=== PATIENT | female | born 1965 | race Caucasian/White ===

== ENCOUNTER 2019-10-13 13:47 | Outpatient (CLI) | payer MEDICARE, MEDICAID, SELFPAY | END 2019-10-13 13:48 | disposition home or self-care (01) | LOC: ANHAUDIO 13:50 | PROVIDERS: PCP Nurse Practitioner Family; Referring Provider Otolaryngology; Visit Provider Nurse Practitioner Family | DX: H90.3 Sensorineural hearing loss, bilateral (principal) | CPT/HCPCS: 92557; 92567 ==

== ENCOUNTER 2019-11-03 13:18 | Outpatient (RCR) | payer MEDICAID, SELFPAY | END 2019-11-03 23:59 | disposition home or self-care (01) | LOC: ANHAUDIO 13:18 | PROVIDERS: PCP Nurse Practitioner Family; Visit Provider Nurse Practitioner Family | DX: Z46.1 Encounter for fitting and adjustment of hearing aid (principal) | CPT/HCPCS: V5160; V5261 ==

== ENCOUNTER 2020-07-22 15:10 | Emergency (ER) | payer MEDICARE, MEDICAID, SELFPAY ==
[2020-07-22 15:25] VITALS: BP 137/77; PULSE 74; RESP 20; TEMP 36.8; O2SAT 95
--- NOTE | 2020-07-22 15:44 | ECG_ITS ---
Measurements Intervals [place] Rate: 67 P: 58 [place]: 162 QRS: 16 QRSD: 93 T: 40 QT: 408 QTc: 433 Interpretive Statements SINUS RHYTHM LOW QRS VOLTAGE IN PRECORDIAL LEADS BASELINE ARTIFACT- I, II, III, AVR, AVF BORDERLINE ECG Electronically Signed On 07-23-2020 7:43:31 SHEET ROCK HANGER by Mic De Los Santos D.O.
[2020-07-22 15:47] LABS: Basophils Absolute Auto 0.03 K/mm3 (0.00-0.10); Basophils Percent Auto 0.2 % (0.0-1.0); Eosinophils Absolute Auto 0.07 K/mm3 (0.02-0.50); Eosinophils Percent Auto 0.6 % (1.0-6.0); Hematocrit 49.4 % (35.0-49.0); Hemoglobin 16.2 g/dL (12.0-15.0); Immature Granulocyte Absolute 0.06 K/mm3 (0.00-0.00); Immature Granulocyte Percent A 0.5 % (0.0-0.0); Lymphocytes Absolute Auto 0.85 K/mm3 (1.10-4.50); Lymphocytes Percent Auto 7.1 % (18.0-42.0); Mean Corpuscular HGB Conc 32.8 g/dL (32.0-36.0); Mean Corpuscular Hemoglobin 27.5 pg (27.0-31.0); Mean Corpuscular Volume 83.7 fL (78.0-102.0); Mean Platelet Volume 9.2 fl (9.2-11.8); Monocytes Absolute Auto 0.48 K/mm3 (0.10-0.90); Neutrophils Absolute Auto 10.6 K/mm3 (1.7-7.2); Neutrophils Percent Auto 87.6 % (50.0-70.0); Platelet Count Result 297 K/mm3 (150-420); Red Cell Distribution Width 13.3 % (11.6-14.4); White Blood Count 12.1 K/mm3 (4.8-10.8)
[2020-07-22] MEDS: SODIUM CHLORIDE 0.9% IV 1,000 ML 999 ML IV CONT (15:58)
[2020-07-22] MEDS: ONDANSETRON INJ 4 MG/2 ML VIAL IV PUSH (15:59)
[2020-07-22 16:06] LABS: Lactic Acid Reflex 2.5 mmol/L (0.4-2.0); Troponin I 5.3 ng/L (0.00-60.4)
[2020-07-22 16:15] LABS: Alanine Aminotransferase 35 U/L (14-59); Albumin Level 4.2 g/dL (3.4-5.0); Alkaline Phosphatase 93 U/L (46-116); Anion Gap 13 mmol/L (8-16); Aspartate Amino Transferase 17 U/L (15-37); Bilirubin,Total 0.5 mg/dL (0.00-1.00); Blood Urea Nitrogen 21 mg/dL (7-18); Calcium 9.8 mg/dL (8.5-10.1); Carbon Dioxide 28 mmol/L (21-32); Chloride 99 mmol/L (98-108); Estimated CRCL calculation 70 ml/min; Estimated Glomerular Filt Rate 51; Glucose 129 mg/dL (70-99); Lipase 94 U/L (73-393); Osmolality Calculated 295 mOsm/kg (285-295); Potassium 3.4 mmol/L (3.5-5.1); Sodium 140 mmol/L (136-145); Total Protein 8.1 g/dL (6.4-8.2)
--- NOTE | 2020-07-22 16:29 | ED.NAVMDI ---
HPI - Nausea/Vomiting/Diarrhea General Chief complaint: Nausea/Vomiting/Diarrhea Stated complaint: vomitting,chest pain Source: patient and family Mode of arrival: ambulatory Limitations: no limitations History of Present Illness HPI Narrative: This is a 54-year-old female who presents nausea and episodes of vomiting and diarrhea with crampy abdominal pain that started earlier this morning 5:00 a.m., the patient has also been complaining of crampy abdominal pain with epigastric burning and chest pain that is reproducible with some pressure. Patient denies any shortness of breath pain level is well controlled, there is no fever chills patient also has loose watery diarrhea that started along with her nausea vomiting. MD elicited complaint: nausea, vomiting, diarrhea and abdominal pain Onset (ago): hour(s) Description of vomiting: food contents and watery Associated nausea: Yes Associated abdominal pain: Yes Location of pain: epigastric Pain consistency: intermittent Severity: mild Quality: cramping Exacerbating factors: eating and vomiting Context: possible food poisoning Associated symptoms: chest pain Related Data Home Medications Medication Instructions Recorded Confirmed aripiprazole [Abilify] 20 mg PO HS 07/22/20 07/22/20 clonazepam 0.25 mg PO DAILY PRN 07/22/20 07/22/20 cyanocobalamin (vitamin B-12) 1,000 mcg IM MONTHLY 07/22/20 07/22/20 empagliflozin [Jardiance] 25 mg PO DAILY 07/22/20 07/22/20 fenofibrate 54 mg PO DAILY 07/22/20 07/22/20 fluoxetine 80 mg PO DAILY 07/22/20 07/22/20 galcanezumab-gnlm [Emgality Pen] See Rx Instructions .ROUTE .COMPLEX 07/22/20 07/22/20 isosorbide mononitrate 30 mg PO DAILY 07/22/20 07/22/20 levetiracetam [Keppra] 500 mg PO BID 07/22/20 07/22/20 metoprolol succinate 50 mg PO BID 07/22/20 07/22/20 mirabegron [Myrbetriq] 25 mg PO DAILY 07/22/20 07/22/20 montelukast 10 mg PO DAILY 07/22/20 07/22/20 olmesartan-hydrochlorothiazide 1 tablet PO DAILY 07/22/20 07/22/20 pantoprazole 40 mg PO DAILY 07/22/20 07/22/20 potassium chloride 20 meq PO DAILY 07/22/20 07/22/20 pravastatin 20 mg PO DAILY 07/22/20 07/22/20 Allergies Allergy/AdvReac Type Severity Reaction Status Date / Time Penicillins Allergy Mild Unknown Verified 07/22/20 15:34 amoxicillin Allergy Unknown Unknown Verified 07/22/20 15:34 aspirin Allergy Unknown Unknown Verified 07/22/20 15:34 codeine Allergy Unknown Unknown Verified 07/22/20 15:34 Review of Systems Review of Systems: All systems reviewed & are unremarkable except as noted in HPI and below PMFSH Past Medical History Medical History Diabetes mellitus HTN (hypertension) Family History Family History Sibling Hypertension Family history of diabetes mellitus in first degree relative Social History Social History Smoking status: Never smoker Gender identity (if verbalized by the patient): Female Exam Const: General: no acute distress and alert Orientation/consciousness: patient oriented x3 HENMT: Head: normal to inspection Eyes: Pupils: Equal, round and reactive pupils present EOM: EOMs intact bilaterally Direct Ophthalmoscopy: no photophobia Neck: Neck: normal visual inspection, no lymphadenopathy and no meningeal signs Chest: Chest palpation & inspection: normal inspection of the chest Resp: Effort & Inspection: normal respiratory effort Auscultation: clear to auscultation bilaterally Cardio: Rate: regular rate Rhythm: regular rhythm GI: GI Palp: Yes Soft to palpation and Yes Tenderness to palpation present (GI) ( intermittent crampy abdominal pain tender epigastric area) Percussion: Yes normal to percussion : General: Yes no CVA tenderness Back/Spine/Pelvis: Back: no CVA tenderness Skin: General skin exam: normal color Rashes: no rashes Neuro: General: patient oriented x3
[2020-07-22 16:40] LABS: Add Urine Microscopic? YES; Appearance Urine Clear (Clear); Bilirubin Urine Negative (Negative); Blood Urine 1+ (Negative); Color Urine Yellow (Yellow); Glucose Urine UA 2+ (Negative); Ketones Urine Negative (Negative); Leukocyte Esterase Ur Negative LEU/UL (Negative); Nitrate Urine Negative (Negative); Protein Urine Trace (Negative); Specific Grav Ur >= 1.030 (1.010-1.020); Urobilinogen Urine 0.2 mg/dL (0.2-1.0); pH Urine 5.5 (5.0-8.0)
[2020-07-22 16:45] LABS: Squamous Epithelial Cell Urine Few /hpf (Few); WBC Urine 0-3 /hpf (0-3)
[2020-07-22 16:46] LABS: Bacteria Urine Trace /hpf
[2020-07-22 17:14] VITALS: BP 131/78; PULSE 75; RESP 20; TEMP 36.7; O2SAT 92
== END 2020-07-22 17:16 | disposition home or self-care (01) ==
PROVIDERS: Emergency Provider Emergency Medicine; PCP Internal Medicine
DX: K52.9 Noninfective gastroenteritis and colitis, unspecified (principal)
CPT/HCPCS: 36415; 80053; 81001; 83605; 83690; 84484; 85025; 93005; 96361; 96374; 99283; 99284; J2405; J7030

== ENCOUNTER 2020-07-28 11:29 | Emergency (ER) | payer MEDICARE, MEDICAID, SELFPAY ==
--- NOTE | ~2020-07-28 | CT_ITS ---
EXAMINATION: CT abdomen pelvis w con EXAM DATE: 07/28/2020 13:18 INDICATION: Generalized abdominal pain, back pain, nausea vomiting. Symptoms 7 days. TECHNIQUE: Spiral CT of the abdomen and pelvis was performed following intravenous injection of 100 m L Omnipaque 350. Axial, coronal and sagittal images were reviewed. The dose-length product (DLP) fo r this examination was 1466.27 mGy-cm. The exposure was tailored according to patient size (auto mA exposure control), and iterative reconstruction (ASIR) was used as additional dose reduction techniqu e. Comparison is made to prior examination from 11/01/2015. FINDINGS: The liver, spleen, adrenal glands and pancreas are unremarkable. There are cholecystectomy clips. Portal and splenic veins are patent. Kidneys enhance symmetrically. There is no hydronephr osis. There is 7 mm right superior calyceal stone. Punctate left inferior calyceal stone. The uterus is unremarkable. The bladder is undistended at time of imaging. There is no retroperitoneal or pe lvic lymphadenopathy. There are surgical changes consistent with appendectomy. The stomach and small bowel are unremarkab le. Only small amount of colonic contents, fluid. No free intraperitoneal gas. The heart is norm al in size. There are no pericardial or pleural effusions. Right lower lobe calcified granuloma. T here are no osteoblastic or osteolytic lesions identified. IMPRESSION: 1. Colonic fluid. Diarrhea or gastroenteritis? 2. Bilateral nephrolithiasis. Reviewed, dictated and finalized at location B. SMITH
[2020-07-28 11:35] VITALS: BP 139/95; PULSE 85; RESP 24; TEMP 36.9; O2SAT 94
[2020-07-28] MEDS: METOCLOPRAMIDE HCL INJ 10 MG/2 ML VIAL IV PUSH ×2 (12:06→15:42)
[2020-07-28] MEDS: ONDANSETRON INJ 4 MG/2 ML VIAL IV PUSH ×2 (12:06→14:31)
[2020-07-28 12:37] LABS: Appearance Urine Clear (Clear); Bilirubin Urine Negative (Negative); Color Urine Yellow (Yellow); Glucose Urine UA 2+ (Negative); Ketones Urine Negative (Negative); Leukocyte Esterase Ur Negative (Negative); Nitrate Urine Negative (Negative); Protein Urine Trace (Negative); Specific Grav Ur 1.015 (1.010-1.020); Urobilinogen Urine 0.2 mg/dL (0.2-1.0)
[2020-07-28 12:38] LABS: Basophils Absolute Auto 0.03 K/mm3 (0.00-0.10); Basophils Percent Auto 0.4 % (0.0-1.0); Eosinophils Absolute Auto 0.03 K/mm3 (0.02-0.50); Eosinophils Percent Auto 0.4 % (1.0-6.0); Hematocrit 49.4 % (35.0-49.0); Hemoglobin 16.3 g/dL (12.0-15.0); Immature Granulocyte Absolute 0.03 K/mm3 (0.00-0.00); Immature Granulocyte Percent A 0.4 % (0.0-0.0); Lymphocytes Absolute Auto 0.87 K/mm3 (1.10-4.50); Lymphocytes Percent Auto 11.2 % (18.0-42.0); Mean Corpuscular Hemoglobin 27.8 pg (27.0-31.0); Mean Corpuscular Volume 84.3 fL (78.0-102.0); Mean Platelet Volume 9.2 fl (9.2-11.8); Monocytes Absolute Auto 0.29 K/mm3 (0.10-0.90); Monocytes Percent Auto 3.7 % (2.0-11.0); Neutrophils Absolute Auto 6.5 K/mm3 (1.7-7.2); Neutrophils Percent Auto 83.9 % (50.0-70.0); Platelet Count Result 305 K/mm3 (150-420); Red Blood Count 5.86 M/mm3 (4.20-5.40); Red Cell Distribution Width 13.3 % (11.6-14.4); White Blood Count 7.8 K/mm3 (4.8-10.8)
--- NOTE | 2020-07-28 12:45 | ED.ABDPAIN ---
HPI - Abdominal Pain General Chief Complaint: Abdominal Pain Stated Complaint: abd pain/bloating Time Seen by Provider: 07/28/20 11:40 Source: patient Mode of arrival: ambulatory Limitations: no limitations History of Present Illness HPI narrative: Patient complains of moderately severe abdominal pain, diffusely, ongoing for the past few days, but worse today. This has been associated with nausea, emesis, and loose stools. Diarrhea has been severe she says, and ongoing, not relieved by measures taken at home. MD elicited complaint: abdominal pain Onset (ago): day(s) Pain Consistency: intermittent Location: diffuse Severity: moderate Quality: cramping Exacerbating factors: nothing Relieving factors: nothing Associated symptoms: denies other symptoms Related Data Home Medications Medication Instructions Recorded Confirmed aripiprazole [Abilify] 20 mg PO HS 07/22/20 07/28/20 clonazepam 0.25 mg PO DAILY PRN 07/22/20 07/28/20 cyanocobalamin (vitamin B-12) 1,000 mcg IM MONTHLY 07/22/20 07/28/20 empagliflozin [Jardiance] 25 mg PO DAILY 07/22/20 07/28/20 fenofibrate 54 mg PO DAILY 07/22/20 07/28/20 fluoxetine 80 mg PO DAILY 07/22/20 07/28/20 galcanezumab-gnlm [Emgality Pen] 120 mg SUBCUT MONTHLY 07/22/20 07/28/20 isosorbide mononitrate 30 mg PO DAILY 07/22/20 07/28/20 levetiracetam [Keppra] 500 mg PO BID 07/22/20 07/28/20 metoprolol succinate 50 mg PO BID 07/22/20 07/28/20 mirabegron [Myrbetriq] 25 mg PO DAILY 07/22/20 07/28/20 montelukast 10 mg PO DAILY 07/22/20 07/28/20 olmesartan-hydrochlorothiazide 1 tablet PO DAILY 07/22/20 07/28/20 pantoprazole 40 mg PO DAILY 07/22/20 07/28/20 potassium chloride 20 meq PO DAILY 07/22/20 07/28/20 pravastatin 20 mg PO DAILY 07/22/20 07/28/20 Allergies Allergy/AdvReac Type Severity Reaction Status Date / Time Penicillins Allergy Mild Unknown Verified 07/22/20 15:34 amoxicillin Allergy Unknown Unknown Verified 07/22/20 15:34 aspirin Allergy Unknown Unknown Verified 07/22/20 15:34 codeine Allergy Unknown Unknown Verified 07/22/20 15:34 Review of Systems Constitutional: Constitutional: Reports no additional constitutional complaints Eyes: Eyes: Reports no additional eye complaints ENT: Reports system reviewed and no additional complaints, except as documented Cardiovascular: Cardiovascular: Reports no additional cardiovascular complaints Respiratory: Respiratory: Reports no additional respiratory complaints Gastrointestinal: Gastrointestinal: Reports abdominal pain, Reports diarrhea, Reports nausea and Reports vomiting Genitourinary: Genitourinary: Reports no additional female genitourinary complaints Musculoskeletal: Musculoskeletal: Reports no additional musculoskeletal complaints Integumentary/Breasts: Skin/Breast: Reports system reviewed and no additional complaints, except as docu Neurologic: Reports system reviewed and no additional complaints, except as documented Psychiatric: Psychiatric: Reports no additional psychiatric complaints Endocrine: Endocrine: Reports no additional endocrine complaints Hematologic/Lymphatic: Hematologic/Lymphatic: Reports no additional hematologic/lymphatic complaints Allergic/Immunologic: Allergic/Immunologic: Reports no additional allergic/immunologic complaints [facility] Past Medical History Medical History Diabetes mellitus HTN (hypertension) Family History Family History Sibling Hypertension Family history of diabetes mellitus in first degree relative Social History Social History Smoking status: Never smoker Gender identity (if verbalized by the patient): Female Exam Const: General: no acute distress Orientation/consciousness: patient oriented x3 HENMT: Head: normal to inspection Ears: external ears normal and TM's normal bilaterally General nose exam: Normal exte
[2020-07-28 12:46] LABS: Add Urine Microscopic? YES; Bacteria Urine 1+ /hpf; Blood Urine Trace-Intact (Negative); Squamous Epithelial Cell Urine Moderate /hpf (Few); WBC Urine 0-3 /hpf (0-3)
[2020-07-28 12:54] LABS: Lactic Acid Reflex 3.3 mmol/L (0.4-2.0)
[2020-07-28 12:59] LABS: Alanine Aminotransferase 26 U/L (14-59); Alkaline Phosphatase 88 U/L (46-116); Amylase 17 U/L (25-115); Anion Gap 10 mmol/L (8-16); Aspartate Amino Transferase 29 U/L (15-37); Bilirubin,Total 0.7 mg/dL (0.00-1.00); Blood Urea Nitrogen 24 mg/dL (7-18); Calcium 9.8 mg/dL (8.5-10.1); Carbon Dioxide 30 mmol/L (21-32); Chloride 97 mmol/L (98-108); Estimated Glomerular Filt Rate 48; Glucose 116 mg/dL (70-99); Lipase 81 U/L (73-393); Osmolality Calculated 289 mOsm/kg (285-295); Potassium 3.1 mmol/L (3.5-5.1); Sodium 137 mmol/L (136-145); Total Protein 8.3 g/dL (6.4-8.2)
[2020-07-28 13:04] LABS: Troponin I 6.2 ng/L (0.00-60.4)
[2020-07-28] MEDS: POTASSIUM CHLORIDE 20 MEQ TABLET 40 MEQ PO (14:25)
[2020-07-28] MEDS: LACTATED RINGERS 1,000 ML 999 ML IV CONT (14:26)
--- NOTE | 2020-07-28 15:16 | PC.NURSE ---
PT IS GIVEN ITEMS TO CLEAN AFTER HAVING DIARRHEA, PT IS GIVEN ADULT DIAPER - IV FLUIDS INFUSING
[2020-07-28] MEDS: PROCHLORPERAZINE EDISYLATE 10 MG/2 ML VIAL 5 MG IV PUSH (15:42)
[2020-07-28 15:55] LABS: Reflex Lactic Acid Yes or No Add Lactic
[2020-07-28 16:57] VITALS: BP 165/91
== END 2020-07-28 17:00 | disposition home or self-care (01) ==
PROVIDERS: Emergency Provider Emergency Medicine; PCP Internal Medicine
DX: E11.43 Type 2 diabetes mellitus with diabetic autonomic (poly)neuropathy (principal); K31.84 Gastroparesis; K52.9 Noninfective gastroenteritis and colitis, unspecified
CPT/HCPCS: 36415; 74177; 80053; 81001; 82150; 83605; 83690; 84484; 85025; 96361; 96374; 96375; 96376; 99283; 99284; A9270; J0780; J2405; J2765; J7120; Q9967

== ENCOUNTER 2021-01-30 16:46 | Emergency (ER) | payer MEDICARE, MEDICAID, SELFPAY ==
[2021-01-30] VITALS (17 sets, daily range): BP systolic 127–171; BP diastolic 59–87; PULSE 64–88; RESP 15–24; TEMP 36.1; O2SAT 92–98
--- NOTE | ~2021-01-30 | XR_ITS ---
EXAMINATION: XR chest 2V DATE: 01/30/2021 17:13 INDICATION: Midsternal chest pain and headache TECHNIQUE: AP and lateral views of the chest are obtained. COMPARISON: 07/01/2012 FINDINGS: The lungs are free of acute opacities. There is no pleural effusion or pneumothorax. The ca rdiomediastinal silhouette is normal. There is mild thoracic spondylosis. IMPRESSION: 1. No acute cardiopulmonary abnormality. Reviewed, dictated and finalized at location A.
--- NOTE | ~2021-01-30 | CT_ITS ---
EXAMINATION: CTA brain carotid EXAM DATE: 01/30/2021 19:55 INDICATION: headache, neck pain, hx aneurysm. TECHNIQUE: Spiral CTA of the carotid arteries was performed with intravenous injection 100 cc of Omni paque 350. Axial, coronal, sagittal reformatted images reviewed. Additional reformatted images creat ed on dedicated 3-D workstation. NASCET comparable standard used to assess the degree of arterial st enosis. Spiral CT angiogram cerebral arteries performed with the same intravenous injection of contr ast. Source images of the brain CTA transferred to dedicated workstation for 3-D rotational image cre ation. Coronal, sagittal maximum intensity pixel images also reviewed. The dose-length product (DLP ) for this examination was 1173.50 mGy-cm. The exposure was tailored according to patient size, and iterative reconstruction (ASIR) was used as additional dose reduction technique. Correlation is made to head CT from yesterday. FINDINGS: There is mild bilateral carotid bulb arteriosclerosis with 0% stenosis bilaterally. Carotid siphons are unremarkable. There is are aneurysm coils in the region of the anterior communicating ar sravanthi. There is right-sided posterior communicating artery dominant posterior cerebral artery. The iron tebral arteries are codominant. There is no carotid or vertebral basilar arterial dissection or fibr omuscular dysplasia. There are no cerebral artery aneurysms. There is symmetric cerebral artery arbor ization. The sagittal, transverse and sigmoid sinuses enhance normally, no venous sinus thrombosis. I nternal cerebral veins also enhance normally. Incidental Findings: Multinodular goiter. Chronically completely opacified left maxillary sinus wall thickening. Small old right frontal lobe leroy hole, encephalomalacia and reviewed. IMPRESSION: 1. No acute carotid or intracranial findings. 2. Bilateral carotid bulb 0% stenosis. 3. Suprasellar aneurysm treatment. Reviewed, dictated and finalized at location B.
--- NOTE | ~2021-01-30 | CT_ITS ---
EXAMINATION: CT brain wo con DATE: 01/30/2021 18:12 INDICATION: Headache, dizziness, blurred vision for 4 days. History of brain aneurysm. TECHNIQUE: Computed tomography (CT) of the head was performed without intravenous contrast. The mA wa s adjusted according to patient size. Iterative reconstruction technique was employed. Exam dose: 60 5.33 mGy-cm total exam DLP. COMPARISON: 06/04/2012 CT brain FINDINGS: There is a stable chronic focal right frontal cerebrovascular accident. Aneurysm clip overlying suprasellar area; history of brain aneurysm. No intracranial mass lesion or hemorrhage or recent cerebrovascular accident. No midline shift or mass effect. No subdural or epidural hematoma. There is deformity of the lateral wall of the left maxillary sinus and complete opacification of the left maxillary sinus. No fracture or bone destruction of the cranial vault. IMPRESSION: Status post cerebral aneurysm repair. 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 Reviewed, dictated and finalized at location A.
--- NOTE | 2021-01-30 16:49 | ECG_ITS ---
Measurements Intervals [place] Rate: 77 P: 47 HI: 129 QRS: 26 QRSD: 94 T: 53 QT: 366 QTc: 414 Interpretive Statements SINUS RHYTHM INCOMPLETE RIGHT BUNDLE BRANCH BLOCK LOW QRS VOLTAGE IN PRECORDIAL LEADS BASELINE ARTIFACT- II, III, AVF, V2-V6 BORDERLINE ECG Electronically Signed On 01-30-2021 19:49:01 CDT by Mic De Los Santos D.O.
[2021-01-30 17:37] LABS: Basophils Absolute Auto 0.1 K/mm3 (0.0-0.1); Basophils Percent Auto 0.5 % (0.2-1.2); Eosinophils Absolute Auto 0.2 K/mm3 (0-0.3); Eosinophils Percent Auto 1.9 % (0-4.4); Hemoglobin 16.2 g/dL (12.0-15.0); Immature Granulocyte Absolute 0.06 K/mm3 (0.00-0.031); Immature Granulocyte Percent A 0.6 % (0-0.5); Lymphocytes Absolute Auto 2.21 K/mm3 (0.9-3.2); Lymphocytes Percent Auto 23.7 % (18.3-44.2); Mean Corpuscular HGB Conc 33.8 g/dl (32-36); Mean Corpuscular Hemoglobin 29.7 pg (26-34); Mean Corpuscular Volume 87.9 fl (80-100); Mean Platelet Volume 9.1 fl (7.4-10.4); Monocytes Absolute Auto 0.6 K/mm3 (0.1-0.6); Monocytes Percent Auto 6.8 % (2.6-8.5); Neutrophils Absolute Auto 6.2 K/mm3 (1.3-6.7); Neutrophils Percent Auto 66.5 % (45.5-73.1); Platelet Count Result 267 k/mm3 (150-375); Red Blood Count 5.46 M/mm3 (4.2-5.4); Red Cell Distribution Width 14.6 % (11.5-14.5); White Blood Count 9.3 K/mm3 (4.5-10.0)
--- NOTE | 2021-01-30 17:49 | ED.CHESTPAIN ---
HPI - Chest Pain General Chief Complaint: Chest Pain Stated Complaint: SIMON/CP Time Seen by Provider: 01/30/21 17:40 Source: patient Mode of arrival: ambulatory Limitations: no limitations History of Present Illness HPI narrative: This is a 55 year old female that presents to the ER for ongoing headache over the last 4 days. Associated with photophobia, blurry vision, and nausea. Reports history of migraines for which she is on Emgality. She follows with a neurologist at [facility]. Also reports this morning she started having sharp, substernal chest pain. She was just sitting down at breakfast when it started. Does report some shortness of breath, which seems to be chronic for her. Denies fever, cough, lower extremity edema, vomiting, numbness or weakness. Related Data Home Medications Medication Instructions Recorded Confirmed aripiprazole [Abilify] 20 mg PO HS 07/22/20 07/28/20 clonazepam 0.25 mg PO DAILY PRN 07/22/20 07/28/20 cyanocobalamin (vitamin B-12) 1,000 mcg IM MONTHLY 07/22/20 07/28/20 empagliflozin [Jardiance] 25 mg PO DAILY 07/22/20 07/28/20 fenofibrate 54 mg PO DAILY 07/22/20 07/28/20 fluoxetine 80 mg PO DAILY 07/22/20 07/28/20 galcanezumab-gnlm [Emgality Pen] 120 mg SUBCUT MONTHLY 07/22/20 07/28/20 isosorbide mononitrate 30 mg PO DAILY 07/22/20 07/28/20 levetiracetam [Keppra] 500 mg PO BID 07/22/20 07/28/20 metoprolol succinate 50 mg PO BID 07/22/20 07/28/20 mirabegron [Myrbetriq] 25 mg PO DAILY 07/22/20 07/28/20 montelukast 10 mg PO DAILY 07/22/20 07/28/20 olmesartan-hydrochlorothiazide 1 tablet PO DAILY 07/22/20 07/28/20 pantoprazole 40 mg PO DAILY 07/22/20 07/28/20 potassium chloride 20 meq PO DAILY 07/22/20 07/28/20 pravastatin 20 mg PO DAILY 07/22/20 07/28/20 Allergies Allergy/AdvReac Type Severity Reaction Status Date / Time Penicillins Allergy Mild Unknown Verified 01/30/21 17:25 amoxicillin Allergy Unknown Unknown Verified 01/30/21 17:25 aspirin Allergy Unknown Unknown Verified 01/30/21 17:25 codeine Allergy Unknown Unknown Verified 01/30/21 17:25 Review of Systems Review of Systems: CONSTITUTIONAL: Denies fever EYES: Reports visual changes CARDIOVASCULAR: Reports chest pain. Denies edema. RESPIRATORY: Reports dyspnea. Denies cough GASTROINTESTINAL: Reports nausea. Denies vomiting NEUROLOGIC: Reports headache. Denies numbness, or weakness. All systems reviewed & are unremarkable except as noted in HPI and below [facility] Past Medical History Medical History (Updated 01/30/21 @ 21:13 by Hilaria Mchugh PA-C) Aneurysm Diabetes mellitus History of migraine HTN (hypertension) Family History Family History Sibling Hypertension Family history of diabetes mellitus in first degree relative Social History Social History Smoking status: Never smoker Gender identity (if verbalized by the patient): Female Exam Narrative: GENERAL: Well-appearing, obese, and in no acute distress. HEAD: Normocephalic, atraumatic. EYES: PERRLA and EOMI. ENT: Nares clear, no rhinorrhea or epistaxis. Mucous membranes moist. Oropharynx without tonsillar hypertrophy exudate or other lesions. Bilateral TMs pearly roa non-bulging NECK: Supple. No adenopathy or masses. CHEST: Clear to auscultation. No respiratory distress. No wheezes rales or rhonchi. Tender to palpation of the mid sternum HEART: Regular rate and rhythm. No murmur heard. Normal peripheral pulses. EXTREMITIES: Normal range of motion. No edema. Strength equal in bilateral upper and lower extremities (5/5) SKIN: Warm, dry, no rash. NEURO: No focal deficits. Alert and oriented x3. Cranial nerves II through XII grossly intact PSYCH: Normal mood and affect Course Vital Signs Vital signs: Vital Signs Temperature 97.0 F L 01/30/21 16:54 Pulse Rate 76 01/30/21 16:54 Respiratory Rate 20 01/30/21 16:54 Blood Pressure 146/87 H 01/30/21 16:54 Pulse
[2021-01-30 17:52] LABS: INR 0.9; Prothrombin Time 11.6 Seconds (11.1-14.7)
[2021-01-30 17:53] LABS: Partial Thromboplastin Time 25.7 SECONDS (22.3-36.8)
[2021-01-30 17:55] LABS: Anion Gap 14 mmol/L (8-16); Blood Urea Nitrogen 17 mg/dL (7-17); Carbon Dioxide 26 mmol/L (22-30); Chloride 100 mmol/L (98-107); Estimated CRCL calculation 76 ml/min; Estimated Glomerular Filt Rate 58; Glucose 131 mg/dL (65-110); Potassium 3.7 mmol/L (3.4-5.0); Sodium 140 mmol/L (137-145)
[2021-01-30 18:07] LABS: NT Pro B Type Natriuretic Pept 145 pg/mL (5-100); Troponin I < 0.012 ng/mL (0.000-0.034)
[2021-01-30 18:14] LABS: Glucose Point of Care 133 mg/dl (65-105)
[2021-01-30] MEDS: SODIUM CHLORIDE 0.9% IV 1,000 ML 999 ML IV CONT (18:15)
[2021-01-30] MEDS: diphenhydrAMINE HCl INJ 50 MG/ML VIAL 25 MG IV PUSH (18:15)
[2021-01-30] MEDS: METOCLOPRAMIDE HCL INJ 10 MG/2 ML VIAL IV PUSH (18:15)
[2021-01-30] MEDS: METOPROLOL TARTRATE 50 MG TAB PO (20:24)
--- NOTE | 2021-01-30 20:43 | PC.NURSE ---
states headache continues 12/26, Adamaris Mchugh PA-C notified.
[2021-01-30 21:04] LABS: Troponin I < 0.012 ng/mL (0.000-0.034)
== END 2021-01-30 21:30 | disposition home or self-care (01) ==
PROVIDERS: Emergency Provider Emergency Medicine; PCP Internal Medicine
DX: R07.89 Other chest pain (principal); G43.909 Migraine, unspecified, not intractable, without status migrainosus; E11.9 Type 2 diabetes mellitus without complications; I10 Essential (primary) hypertension; R06.02 Shortness of breath
CPT/HCPCS: 36415; 70450; 70496; 70498; 71046; 80048; 82948; 83880; 84484; 85025; 85610; 85730; 93005; 96361; 96365; 96375; 99284; A9270; J0131; J1100; J1200; J2765; J7030; Q9967

== ENCOUNTER 2021-03-15 11:32 | Outpatient (CLI) | payer MEDICARE, SELFPAY ==
[2021-03-15 11:46] LABS: Basophils Absolute Auto 0.06 K/mm3 (0.00-0.10); Basophils Percent Auto 0.9 % (0.0-1.0); Eosinophils Absolute Auto 0.22 K/mm3 (0.02-0.50); Eosinophils Percent Auto 3.4 % (1.0-6.0); Hematocrit 47.1 % (35.0-49.0); Hemoglobin 16.1 g/dL (12.0-15.0); Immature Granulocyte Absolute 0.04 K/mm3 (0.00-0.00); Immature Granulocyte Percent A 0.6 % (0.0-0.0); Lymphocytes Absolute Auto 1.81 K/mm3 (1.10-4.50); Lymphocytes Percent Auto 27.7 % (18.0-42.0); Mean Corpuscular HGB Conc 34.2 g/dL (32.0-36.0); Mean Corpuscular Hemoglobin 29.8 pg (27.0-31.0); Mean Corpuscular Volume 87.2 fL (78.0-102.0); Mean Platelet Volume 8.8 fl (9.2-11.8); Monocytes Absolute Auto 0.39 K/mm3 (0.10-0.90); Neutrophils Percent Auto 61.4 % (50.0-70.0); Platelet Count Result 260 K/mm3 (150-420); Red Cell Distribution Width 13.2 % (11.6-14.4); White Blood Count 6.5 K/mm3 (4.8-10.8)
[2021-03-15 11:47] LABS: Add Urine Microscopic? YES; Appearance Urine Clear (Clear); Bilirubin Urine Negative (Negative); Blood Urine Negative (Negative); Color Urine Light Yellow (Yellow); Glucose Urine UA 2+ (Negative); Ketones Urine Negative (Negative); Leukocyte Esterase Ur Negative (Negative); Nitrate Urine Negative (Negative); Protein Urine Negative (Negative); Specific Grav Ur <= 1.005 (1.010-1.020); Urobilinogen Urine 0.2 mg/dL (0.2-1.0)
[2021-03-15 11:51] LABS: Bacteria Urine None seen /hpf; RBC Urine None seen /hpf (0-2); Squamous Epithelial Cell Urine Rare /hpf (Few); WBC Urine None seen /hpf (0-3)
[2021-03-15 12:11] LABS: Creatinine Urine 26.35 mg/dL (40-278); MALB Creatinine Ratio 49.3 mg/g (0-30); Microalbumin Urine Random < 13.0 mg/L
[2021-03-15 12:14] LABS: Hemoglobin A1C 6.1 % (<5.7)
[2021-03-15 12:28] LABS: Alanine Aminotransferase 40 U/L (14-59); Albumin Level 3.8 g/dL (3.4-5.0); Alkaline Phosphatase 89 U/L (46-116); Anion Gap 12 mmol/L (8-16); Aspartate Amino Transferase 23 U/L (15-37); Bilirubin,Total 0.5 mg/dL (0.00-1.00); Blood Urea Nitrogen 15 mg/dL (7-18); Carbon Dioxide 29 mmol/L (21-32); Chloride 100 mmol/L (98-108); Cholesterol 194 mg/dL (0-200); Estimated Glomerular Filt Rate > 60; Glucose 110 mg/dL (70-99); HDL Direct 40 mg/dL (40-60); LDL Cholesterol Calculated 127 mg/dL (<130); Osmolality Calculated 293 mOsm/kg (285-295); Potassium 3.7 mmol/L (3.5-5.1); Sodium 141 mmol/L (136-145); Thyroid Stimulating Hormone 0.58 uIU/mL (0.36-3.74); Total Protein 7.1 g/dL (6.4-8.2); Triglycerides 134 mg/dL (0-150)
[2021-03-15 12:32] LABS: Calcium 9.2 mg/dL (8.5-10.1)
== END 2021-03-15 11:33 | disposition home or self-care (01) ==
LOC: CHSLAB 11:35
PROVIDERS: PCP Internal Medicine; Visit Provider Internal Medicine
DX: E11.9 Type 2 diabetes mellitus without complications (principal); I10 Essential (primary) hypertension; E78.5 Hyperlipidemia, unspecified
CPT/HCPCS: 36415; 80053; 80061; 81001; 82043; 83036; 84443; 85025

== ENCOUNTER 2021-05-14 10:45 | Outpatient (CLI) | payer MEDICARE, MEDICAID, SELFPAY ==
--- NOTE | ~2021-05-14 | MM_ITS ---
EXAMINATION: MM screening meggan BI w naima HISTORY: Screening TECHNIQUE: Craniocaudal and mediolateral oblique 3-D tomosynthesis images were obtained and synthetic 2-D images were generated. CAD analysis was submitted and interpreted. COMPARISON: Comparison to multiple prior studies sequentially, with oldest reviewed study dated 05/2012. BREAST PARENCHYMAL COMPOSITION: Breast composed of scattered areas of fibroglandular density FINDINGS: There is no evidence of suspicious mass, calcification, or architectural distortion to sugg est malignancy in either breast. There has been no suspicious interval change. IMPRESSION: 1. No mammographic evidence of malignancy. 2. Recommend routine screening mammography in one year. BI-RADS Category 1: Negative Reviewed, dictated and finalized at location A. SPORT AIRCREWMAN
== END 2021-05-14 10:46 | disposition home or self-care (01) ==
LOC: CHSIMG 10:46
PROVIDERS: PCP Internal Medicine; Visit Provider Internal Medicine
DX: Z12.31 Encounter for screening mammogram for malignant neoplasm of breast (principal)
CPT/HCPCS: 77063; 77067

== ENCOUNTER 2021-07-12 18:35 | Emergency (ER) | payer MEDICARE, MEDICAID, SELFPAY ==
--- NOTE | ~2021-07-12 | XR_ITS ---
EXAMINATION: XR chest 1V portable INDICATION: Centralized chest pain and shortness of breath TECHNIQUE: Portable AP chest at 1856 hours COMPARISON: 01/30/2021 FINDINGS: The lungs are free of acute opacities. There is no pleural effusion or pneumothorax. The ca rdiomediastinal silhouette is normal. IMPRESSION: 1. No acute cardiopulmonary abnormality. Reviewed, dictated and finalized at location F. STRIAL SPECIALIST
[2021-07-12 18:44] VITALS: BP 151/80; PULSE 80; RESP 20; TEMP 36.6; O2SAT 96
--- NOTE | 2021-07-12 18:45 | ECG_ITS ---
Measurements Intervals [place] Rate: 74 P: 55 [place]: 172 QRS: 18 QRSD: 99 T: 44 QT: 385 QTc: 428 Interpretive Statements SINUS RHYTHM DELAYED PRECORDIAL R/S TRANSITION LOW QRS VOLTAGE IN PRECORDIAL LEADS BASELINE ARTIFACT- I, II, III, AVR, AVL, AVF BORDERLINE ECG Electronically Signed On 07-12-2021 20:57:33 FLEET MANAGER by Mic De Los Santos D.O.
[2021-07-12 19:09] LABS: Basophils Absolute Auto 0.05 K/mm3 (0.00-0.10); Basophils Percent Auto 0.6 % (0.0-1.0); Eosinophils Absolute Auto 0.18 K/mm3 (0.02-0.50); Eosinophils Percent Auto 2.2 % (1.0-6.0); Hematocrit 46.7 % (35.0-49.0); Hemoglobin 15.8 g/dL (12.0-15.0); Immature Granulocyte Absolute 0.02 K/mm3 (0.00-0.00); Immature Granulocyte Percent A 0.2 % (0.0-0.0); Lymphocytes Absolute Auto 2.03 K/mm3 (1.10-4.50); Lymphocytes Percent Auto 24.6 % (18.0-42.0); Mean Corpuscular HGB Conc 33.8 g/dL (32.0-36.0); Mean Corpuscular Volume 85.8 fL (78.0-102.0); Monocytes Absolute Auto 0.43 K/mm3 (0.10-0.90); Monocytes Percent Auto 5.2 % (2.0-11.0); Neutrophils Absolute Auto 5.6 K/mm3 (1.7-7.2); Neutrophils Percent Auto 67.2 % (50.0-70.0); Platelet Count Result 262 K/mm3 (150-420); Red Blood Count 5.44 M/mm3 (4.20-5.40); Red Cell Distribution Width 13.2 % (11.6-14.4); White Blood Count 8.3 K/mm3 (4.8-10.8)
[2021-07-12] MEDS: ONDANSETRON INJ 4 MG/2 ML VIAL IV PUSH ×2 (19:21→20:20)
[2021-07-12 19:31] LABS: Alanine Aminotransferase 33 U/L (14-59); Albumin Level 3.5 g/dL (3.4-5.0); Alkaline Phosphatase 94 U/L (46-116); Anion Gap 10 mmol/L (8-16); Aspartate Amino Transferase 12 U/L (15-37); Bilirubin,Total 0.5 mg/dL (0.00-1.00); Blood Urea Nitrogen 15 mg/dL (7-18); Calcium 9.4 mg/dL (8.5-10.1); Carbon Dioxide 29 mmol/L (21-32); Chloride 100 mmol/L (98-108); Estimated CRCL calculation 88 ml/min; Estimated Glomerular Filt Rate > 60; Glucose 95 mg/dL (70-99); Lipase 317 U/L (73-393); NT Pro B Type Natriuretic Pept 45 pg/mL (0-125); Osmolality Calculated 288 mOsm/kg (285-295); Potassium 3.3 mmol/L (3.5-5.1); Sodium 139 mmol/L (136-145); Total Protein 7.4 g/dL (6.4-8.2)
--- NOTE | 2021-07-12 20:11 | ED.CHESTPAIN ---
HPI - Chest Pain General Chief Complaint: Chest Pain Stated Complaint: chest pain, arm pain, neck pain Time Seen by Provider: 07/12/21 18:38 Source: patient and RN notes reviewed Mode of arrival: ambulatory Limitations: no limitations History of Present Illness MD complaint: chest pain Pertinent past history: coronary artery disease and prior NM Onset (ago): day(s) (1) Prior episodes: Yes Onset: during rest and during exertion Pain location: substernal and left chest Pain radiation: none Severity: mild Pain scale (0-10): 3 Quality: aching, heaviness and dull Relieving factors: nitroglycerin Exacerbating factors: nothing Associated symptoms: nausea Treatment prior to arrival: aspirin and nitroglycerin Risk Factors Coronary artery disease risk factors: diabetes, hyperlipidemia and hypertension Related Data Home Medications Medication Instructions Recorded Confirmed aripiprazole [Abilify] 20 mg PO HS 07/22/20 07/12/21 clonazepam 0.25 mg PO DAILY PRN 07/22/20 07/12/21 cyanocobalamin (vitamin B-12) 1,000 mcg IM MONTHLY 07/22/20 07/12/21 empagliflozin [Jardiance] 25 mg PO DAILY 07/22/20 07/12/21 fenofibrate 54 mg PO DAILY 07/22/20 07/12/21 fluoxetine 80 mg PO DAILY 07/22/20 07/12/21 galcanezumab-gnlm [Emgality Pen] 120 mg SUBCUT MONTHLY 07/22/20 07/12/21 isosorbide mononitrate 30 mg PO DAILY 07/22/20 07/12/21 levetiracetam [Keppra] 500 mg PO BID 07/22/20 07/12/21 metoprolol succinate 50 mg PO BID 07/22/20 07/12/21 mirabegron [Myrbetriq] 25 mg PO DAILY 07/22/20 07/12/21 montelukast 10 mg PO DAILY 07/22/20 07/12/21 olmesartan-hydrochlorothiazide 1 tablet PO DAILY 07/22/20 07/12/21 pantoprazole 40 mg PO DAILY 07/22/20 07/12/21 potassium chloride 20 meq PO DAILY 07/22/20 07/12/21 pravastatin 20 mg PO DAILY 07/22/20 07/12/21 erenumab-aooe [Aimovig 140 mg SUBCUT MONTHLY 07/12/21 07/12/21 Autoinjector] liraglutide [Victoza 2-Korey] 18 mg SUBCUT USEASDIRECTD 07/12/21 07/12/21 Allergies Allergy/AdvReac Type Severity Reaction Status Date / Time Penicillins Allergy Mild Unknown Verified 07/12/21 19:06 amoxicillin Allergy Unknown Unknown Verified 07/12/21 19:06 aspirin Allergy Unknown Unknown Verified 07/12/21 19:06 codeine Allergy Unknown Unknown Verified 07/12/21 19:06 Review of Systems Review of Systems: All systems reviewed & are unremarkable except as noted in HPI and below PMFSH Past Medical History Medical History Aneurysm Angina pectoris Diabetes mellitus History of migraine HTN (hypertension) Family History Family History Sibling Hypertension Family history of diabetes mellitus in first degree relative Social History Social History Smoking status: Never smoker Gender identity (if verbalized by the patient): Female Exam Const: General: no acute distress and alert Nutritional Appearance: obese Orientation/consciousness: patient oriented x3 Limitations: no limitations HENMT: Head: normal to inspection Ears: external ears normal, TM's normal bilaterally and EAC's normal General nose exam: Normal external nose present and Normal nares present Face and sinus: normal facial exam and sinuses nontender Mouth: Yes lip normal and Yes moist mucous membranes Eyes: Conjunctivae: conjunctivae normal Pupils: Equal, round and reactive pupils present EOM: EOMs intact bilaterally Neck: Neck: normal visual inspection and no lymphadenopathy Other: supple Chest: Chest palpation & inspection: normal inspection of the chest Resp: Effort & Inspection: normal respiratory effort Auscultation: clear to auscultation bilaterally Cardio: Rate: regular rate Rhythm: regular rhythm GI: GI Palp: Yes Soft to palpation and No Tenderness to palpation present (GI) Auscultation: normal bowel sounds : General: Yes bladder normal to palpation and Yes no CVA tend
[2021-07-12] MEDS: MORPHINE SULFATE (*CRX) 2 MG/ML INJ IV PUSH (20:20)
[2021-07-12] MEDS: POTASSIUM CHLORIDE 20 MEQ TABLET PO (20:20)
[2021-07-12 20:21] LABS: Appearance Urine Clear (Clear); Bilirubin Urine Negative (Negative); Color Urine Light Yellow (Yellow); Glucose Urine UA Negative (Negative); Ketones Urine Negative (Negative); Leukocyte Esterase Ur Negative LEU/UL (Negative); Nitrate Urine Negative (Negative); Protein Urine Negative (Negative); Specific Grav Ur 1.015 (1.010-1.020); Urobilinogen Urine 0.2 mg/dL (0.2-1.0)
[2021-07-12 20:25] LABS: Add Urine Microscopic? YES; Bacteria Urine None seen /hpf; Blood Urine Trace-Intact (Negative); Squamous Epithelial Cell Urine Rare /hpf (Few); WBC Urine 0-3 /hpf (0-3)
[2021-07-12 20:28] LABS: Amphetamine Screen Urine Negative (Negative); Barbiturate Screen Urine Negative (Negative); Benzodiazepines Screen Urine Negative (Negative); Cannabinoid Screen Urine Negative (Negative); Cocaine Screen Urine Negative (Negative); Methadone Screen Urine Negative (Negative); Opiate Screen Urine Negative (Negative); Phencyclidine Screen Urine Negative (Negative)
[2021-07-12] MEDS: NITROGLYCERIN SL 0.4 MG TABLET SUBLINGUAL (20:34)
[2021-07-12 20:52] VITALS: BP 151/88; PULSE 88; RESP 14; TEMP 36.6; O2SAT 99
== END 2021-07-12 20:52 | disposition home or self-care (01) ==
PROVIDERS: Emergency Provider Emergency Medicine; PCP Internal Medicine
DX: I20.8 Other forms of angina pectoris (principal); E11.9 Type 2 diabetes mellitus without complications; I10 Essential (primary) hypertension; Z79.899 Other long term (current) drug therapy
CPT/HCPCS: 36415; 71045; 80053; 80307; 81001; 83690; 83880; 84484; 85025; 93005; 96374; 96375; 96376; 99284; A9270; J2270; J2405

== ENCOUNTER 2022-01-07 08:17 | Outpatient (CLI) | payer MEDICARE, SELFPAY ==
[2022-01-07 08:31] LABS: Basophils Absolute Auto 0.04 K/mm3 (0.00-0.10); Basophils Percent Auto 0.7 % (0.0-1.0); Eosinophils Absolute Auto 0.24 K/mm3 (0.02-0.50); Hemoglobin 14.7 g/dL (12.0-15.0); Immature Granulocyte Absolute 0.03 K/mm3 (0.00-0.00); Immature Granulocyte Percent A 0.5 % (0.0-0.0); Lymphocytes Absolute Auto 2.04 K/mm3 (1.10-4.50); Lymphocytes Percent Auto 33.7 % (18.0-42.0); Mean Corpuscular HGB Conc 34.2 g/dL (32.0-36.0); Mean Corpuscular Hemoglobin 29.5 pg (27.0-31.0); Mean Corpuscular Volume 86.3 fL (78.0-102.0); Mean Platelet Volume 9.4 fl (9.2-11.8); Monocytes Absolute Auto 0.47 K/mm3 (0.10-0.90); Monocytes Percent Auto 7.8 % (2.0-11.0); Neutrophils Absolute Auto 3.2 K/mm3 (1.7-7.2); Neutrophils Percent Auto 53.3 % (50.0-70.0); Platelet Count Result 217 K/mm3 (150-420); Red Blood Count 4.98 M/mm3 (4.20-5.40); White Blood Count 6.1 K/mm3 (4.8-10.8)
[2022-01-07 08:48] LABS: Hemoglobin A1C 6.2 % (<5.7)
[2022-01-07 08:55] LABS: Alanine Aminotransferase 34 U/L (14-59); Albumin Level 3.5 g/dL (3.4-5.0); Alkaline Phosphatase 97 U/L (46-116); Anion Gap 9 mmol/L (8-16); Aspartate Amino Transferase 15 U/L (15-37); Bilirubin,Total 0.3 mg/dL (0.00-1.00); Blood Urea Nitrogen 21 mg/dL (7-18); Carbon Dioxide 28 mmol/L (21-32); Chloride 101 mmol/L (98-108); Estimated Glomerular Filt Rate > 60; Glucose 171 mg/dL (70-99); Osmolality Calculated 293 mOsm/kg (285-295); Potassium 3.4 mmol/L (3.5-5.1); Sodium 138 mmol/L (136-145); Thyroid Stimulating Hormone 2.13 uIU/mL (0.36-3.74); Total Protein 7.2 g/dL (6.4-8.2)
== END 2022-01-07 08:18 | disposition home or self-care (01) ==
LOC: CHSLAB 08:20
PROVIDERS: PCP Internal Medicine; Visit Provider Internal Medicine
DX: E11.9 Type 2 diabetes mellitus without complications (principal)
CPT/HCPCS: 36415; 80053; 83036; 84443; 85025

== ENCOUNTER 2022-03-09 08:33 | Outpatient (CLI) | payer MEDICARE, MEDICAID, SELFPAY ==
[2022-03-09 09:01] LABS: Basophils Absolute Auto 0.03 K/mm3 (0.00-0.10); Basophils Percent Auto 0.5 % (0.0-1.0); Eosinophils Absolute Auto 0.16 K/mm3 (0.02-0.50); Eosinophils Percent Auto 2.5 % (1.0-6.0); Hematocrit 45.2 % (35.0-49.0); Hemoglobin 15.3 g/dL (12.0-15.0); Immature Granulocyte Absolute 0.02 K/mm3 (0.00-0.00); Immature Granulocyte Percent A 0.3 % (0.0-0.0); Lymphocytes Absolute Auto 1.44 K/mm3 (1.10-4.50); Lymphocytes Percent Auto 22.4 % (18.0-42.0); Mean Corpuscular HGB Conc 33.8 g/dL (32.0-36.0); Mean Corpuscular Volume 85.6 fL (78.0-102.0); Mean Platelet Volume 9.3 fl (9.2-11.8); Monocytes Absolute Auto 0.45 K/mm3 (0.10-0.90); Neutrophils Absolute Auto 4.3 K/mm3 (1.7-7.2); Neutrophils Percent Auto 67.3 % (50.0-70.0); Platelet Count Result 245 K/mm3 (150-420); Red Blood Count 5.28 M/mm3 (4.20-5.40); Red Cell Distribution Width 13.2 % (11.6-14.4); White Blood Count 6.4 K/mm3 (4.8-10.8)
[2022-03-09 09:18] LABS: Hemoglobin A1C 5.7 % (<5.7)
[2022-03-09 09:24] LABS: Alanine Aminotransferase 39 U/L (14-59); Albumin Level 3.9 g/dL (3.4-5.0); Alkaline Phosphatase 98 U/L (46-116); Anion Gap 8 mmol/L (8-16); Aspartate Amino Transferase 22 U/L (15-37); Bilirubin,Total 0.6 mg/dL (0.00-1.00); Blood Urea Nitrogen 18 mg/dL (7-18); Calcium 9.1 mg/dL (8.5-10.1); Carbon Dioxide 31 mmol/L (21-32); Chloride 100 mmol/L (98-108); Cholesterol 159 mg/dL (0-200); Estimated Glomerular Filt Rate > 60; Glucose 109 mg/dL (70-99); HDL Direct 41 mg/dL (40-60); Iron 85 ug/dL (50-170); LDL Cholesterol Calculated 100 mg/dL (<130); Osmolality Calculated 290 mOsm/kg (285-295); Percent Iron Saturation 26 % (12-57); Potassium 3.2 mmol/L (3.5-5.1); Sodium 139 mmol/L (136-145); Total Protein 7.3 g/dL (6.4-8.2); Triglycerides 92 mg/dL (0-150)
[2022-03-09 09:35] LABS: Thyroid Stimulating Hormone Reflex 0.82 u/IU/mL (0.36-3.74)
[2022-03-09 10:47] LABS: Ferritin 58 ng/mL (8-252)
[2022-03-12 18:37] LABS: Vitamin D 25 Hydroxy 68 ng/mL (30-100)
[2022-03-12 21:29] LABS: C-Peptide 4.27 ng/mL (0.80-3.85)
[2022-03-14 18:03] LABS: Prealbumin 20 mg/dL (17-34)
== END 2022-03-09 08:34 | disposition home or self-care (01) ==
PROVIDERS: PCP Internal Medicine
DX: E78.5 Hyperlipidemia, unspecified (principal); Z98.84 Bariatric surgery status; E66.01 Morbid (severe) obesity due to excess calories; G47.30 Sleep apnea, unspecified; E55.9 Vitamin D deficiency, unspecified; E11.9 Type 2 diabetes mellitus without complications
CPT/HCPCS: 36415; 80053; 80061; 82306; 82728; 83036; 83540; 83550; 84134; 84443; 84681; 85025

== ENCOUNTER 2022-11-22 20:02 | Emergency (ER) | payer MEDICARE, MEDICAID, SELFPAY ==
[2022-11-22] VITALS (14 sets, daily range): BP systolic 132–154; BP diastolic 78–95; PULSE 67–91; RESP 15–24; TEMP 36.7; O2SAT 93–100
--- NOTE | ~2022-11-22 | CT_ITS ---
EXAMINATION: CTA brain carotid DATE: 11/22/2022 20:40 INDICATION: cva TECHNIQUE: Computed tomographic angiography (CTA) of the head was performed without and with 100 mL O mnipaque-350 intravenous contrast. CTA of the neck was performed with intravenous contrast. Automated exposure control and iterative reconstruction technique were employed. The dose-length product was 1 790.95 mGy-cm. Maximum intensity projection and volume rendered 3D-reconstructions were created by donna willams technologist on a separate workstation. COMPARISON: CTA brain carotid 01/30/2021; CT brain 01/30/2021. FINDINGS: CT BRAIN: No acute large vessel infarct, intracranial hemorrhage, mass, or hydrocephalus. 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 Patent cerebral veins. Symmetric parenchymal enhancement. CTA HEAD: No large vessel occlusion, aneurysm, high flow vascular malformation, nidus or extravasation. Persist ent origin of the right posterior cerebral artery. CTA NECK: Aortic arch and proximal great vessels: Mild arch calcification. Normal arch anatomy. Right common carotid, carotid bifurcation, and internal carotid artery: Mild calcification at the bif urcation.There is 0% stenosis of the proximal right internal carotid artery relative to normal distal artery lumen diameter (NASCET criteria). Left common carotid, carotid bifurcation, and internal carotid artery: Mild calcification at the bifu rcation.There is 0% stenosis of the proximal left internal carotid artery relative to normal distal a rtery lumen diameter (NASCET criteria). Vertebral arteries: No significant plaque or stenosis. Vertebral arteries co-dominant. Other findings: Multinodular goiter. Moderate degenerative disc disease at C5-6. IMPRESSION: No acute intracranial hemorrhage or acute large vessel infarct. No large vessel occlusion. No significant carotid or vertebral stenosis. Reviewed, dictated and finalized at location K.
--- NOTE | 2022-11-22 20:10 | ECG_ITS ---
Measurements Intervals [place] Rate: 70 P: 52 [place]: 123 QRS: 19 QRSD: 98 T: 34 QT: 384 QTc: 415 Interpretive Statements SINUS RHYTHM BASELINE ARTIFACT- I, II, III, AVR, AVL, AVF, V1 NORMAL ECG COMPARED TO ECG 07/12/2021 19:05:44 NO SIGNIFICANT CHANGES Electronically Signed On 11-22-2022 23:08:32 CDT by Mic De Los Santos D.O.
--- NOTE | 2022-11-22 20:12 | PC.NURSE ---
family last saw patient completely normal at 0930 this morning. patient has history of migraines but has been out of her medications for migraines.
[2022-11-22 20:29] LABS: Basophils Percent Auto 0.4 % (0.2-1.2); Eosinophils Absolute Auto 0.3 K/mm3 (0-0.3); Eosinophils Percent Auto 3.4 % (0-4.4); Hematocrit 45.9 % (37.0-47.0); Hemoglobin 15.8 g/dL (12.0-15.0); Immature Granulocyte Absolute 0.03 K/mm3 (0.00-0.031); Immature Granulocyte Percent A 0.4 % (0-0.5); Lymphocytes Absolute Auto 2.39 K/mm3 (0.9-3.2); Lymphocytes Percent Auto 32.5 % (18.3-44.2); Mean Corpuscular HGB Conc 34.4 g/dl (32-36); Mean Corpuscular Hemoglobin 30.4 pg (26-34); Mean Corpuscular Volume 88.3 fl (80-100); Mean Platelet Volume 9.2 fl (7.4-10.4); Monocytes Absolute Auto 0.7 K/mm3 (0.1-0.6); Monocytes Percent Auto 8.8 % (2.6-8.5); Neutrophils Percent Auto 54.5 % (45.5-73.1); Platelet Count Result 239 k/mm3 (150-375); Red Cell Distribution Width 13.1 % (11.5-14.5); White Blood Count 7.4 K/mm3 (4.5-10.0)
[2022-11-22 20:33] LABS: Estimated CRCL calculation 95 ml/min; Estimated Glomerular Filt Rate > 60
[2022-11-22 20:36] LABS: Appearance Urine Clear (Clear); Bacteria Urine None Seen /hpf; Bilirubin Urine Negative (Negative); Blood Urine Trace (Negative); Color Urine Yellow (Yellow); Glucose Urine UA Negative (Negative); Ketones Urine Negative (Negative); Leukocyte Esterase Ur 1+ LEU/UL (Negative); Nitrate Urine Negative (Negative); Non Pathogenic Casts 0-2; Protein Urine Negative (Negative); RBC Urine 0-2 /hpf (0-2); Specific Grav Ur 1.011 (1.001-1.035); Squamous Epithelial Cell Urine None seen /hpf (Few); Urobilinogen Urine 0.2 mg/dL (<2.0); pH Urine 5.5 (5.0-9.0)
[2022-11-22 20:40] LABS: Add Urine Microscopic? YES; INR 0.9; Prothrombin Time 12.8 Seconds (11.1-14.7)
[2022-11-22 20:41] LABS: Partial Thromboplastin Time 27.3 SECONDS (22.3-36.8)
[2022-11-22 20:42] LABS: Alanine Aminotransferase 37 U/L (6-35); Albumin Level 4.4 g/dL (3.5-5.1); Alkaline Phosphatase 106 U/L (38-126); Anion Gap 5 mmol/L (8-16); Aspartate Amino Transferase 31 U/L (14-36); Bilirubin,Total 0.4 mg/dL (0.2-1.3); Blood Urea Nitrogen 20 mg/dL (7-17); Calcium 9.6 mg/dL (8.4-10.2); Carbon Dioxide 34 mmol/L (22-30); Chloride 99 mmol/L (98-107); Estimated CRCL calculation 107 ml/min; Estimated Glomerular Filt Rate > 60; Glucose 133 mg/dL (65-110); Magnesium 1.4 mg/dL (1.6-2.3); Potassium 3.4 mmol/L (3.4-5.0); Sodium 138 mmol/L (137-145)
[2022-11-22 20:43] LABS: Lactic Acid Reflex 1.7 mmol/L (0.7-2.0)
[2022-11-22] MEDS: SODIUM CHLORIDE 0.9% IV 1,000 ML 999 ML IV CONT (20:44)
[2022-11-22] MEDS: MAGNESIUM SULF 1 GM/D5W 100 ML 1 GM/100 ML BAG IVPB ×2 (20:44→22:00)
[2022-11-22] MEDS: METOCLOPRAMIDE HCL INJ 10 MG/2 ML VIAL IV PUSH (20:45)
[2022-11-22] MEDS: diphenhydrAMINE HCl INJ 50 MG/ML VIAL IV PUSH (20:45)
[2022-11-22 20:48] LABS: Amphetamine Screen Urine Negative (Negative); Barbiturate Screen Urine Negative (Negative); Benzodiazepines Screen Urine Negative (Negative); Cannabinoid Screen Urine Negative (Negative); Cocaine Screen Urine Negative (Negative); Methadone Screen Urine Negative (Negative); Opiate Screen Urine Negative (Negative); Phencyclidine Screen Urine Negative (Negative)
--- NOTE | 2022-11-22 20:50 | ED.GENADULT ---
HPI - General Adult General Chief complaint: Headache Stated complaint: confusion/headache Time Seen by Provider: 11/22/22 20:09 History of Present Illness HPI narrative: Patient 57-year-old female who presents emergency department with chief complaint of headache. The patient reports that she has been having a headache for approximately 1 week but reports that her head has become more uncomfortable patient reports that she was last known well approximately 930 this morning and then this evening she called her significant other and said that she was in to go to the hospital the patient was found confused [address] by the family Related Data Home Medications Medication Instructions Recorded Confirmed aripiprazole 2 mg tablet (Abilify) 20 mg PO HS 07/22/20 07/12/21 clonazepam 0.25 mg disintegrating 0.25 mg PO DAILY PRN Anxiety 07/22/20 07/12/21 tablet cyanocobalamin (vitamin B-12) 1,000 mcg IM MONTHLY 07/22/20 07/12/21 1,000 mcg/mL injection solution empagliflozin 25 mg tablet 25 mg PO DAILY 07/22/20 07/12/21 (Jardiance) fenofibrate 54 mg tablet 54 mg PO DAILY 07/22/20 07/12/21 fluoxetine 40 mg capsule 80 mg PO DAILY 07/22/20 07/12/21 galcanezumab-gnlm 120 mg/mL 120 mg subcut MONTHLY 07/22/20 07/12/21 subcutaneous pen injector (Emgality Pen) isosorbide mononitrate 30 mg 30 mg PO DAILY 07/22/20 07/12/21 tablet,extended release 24 hr levetiracetam 500 mg tablet 500 mg PO BID 07/22/20 07/12/21 (Keppra) metoprolol succinate 50 mg 50 mg PO BID 07/22/20 07/12/21 tablet,extended release 24 hr mirabegron 25 mg tablet,extended 25 mg PO DAILY 07/22/20 07/12/21 release 24 hr (Myrbetriq) montelukast 10 mg tablet 10 mg PO DAILY 07/22/20 07/12/21 olmesartan 40 1 tablet PO DAILY 07/22/20 07/12/21 mg-hydrochlorothiazide 25 mg tablet pantoprazole 40 mg tablet,delayed 40 mg PO DAILY 07/22/20 07/12/21 release potassium chloride 10 mEq 20 meq PO DAILY 07/22/20 07/12/21 capsule,extended release pravastatin 20 mg tablet 20 mg PO DAILY 07/22/20 07/12/21 erenumab-aooe 140 mg/mL 140 mg subcut MONTHLY 07/12/21 07/12/21 subcutaneous auto-injector (Aimovig Autoinjector) liraglutide 0.6 mg/0.1 mL (18 mg/3 18 mg subcut USEASDIRECTD 07/12/21 07/12/21 mL) subcutaneous pen injector (simpleFLOORStoza 2-Korey) Allergies Allergy/AdvReac Type Severity Reaction Status Date / Time Penicillins Allergy Mild Unknown Verified 07/12/21 19:06 amoxicillin Allergy Unknown Unknown Verified 07/12/21 19:06 aspirin Allergy Unknown Unknown Verified 07/12/21 19:06 codeine Allergy Unknown Unknown Verified 07/12/21 19:06 amlodipine Allergy Nausea and Verified 11/22/22 20:45 Vomiting Review of Systems Review of Systems: A 10 system review of systems was completed on the patient and is negative except for what is stated in the HPI. Nursing and ancillary documentation was reviewed. [facility] Past Medical History Medical History Aneurysm Angina pectoris Diabetes mellitus History of migraine HTN (hypertension) Family History Family History Sibling Hypertension Family history of diabetes mellitus in first degree relative Social History Social History Smoking status: Never smoker Gender identity (if verbalized by the patient): Female Exam Narrative: GENERAL: Well-appearing, well-nourished, and in no acute distress. HEAD: Normocephalic, atraumatic. EYES: PERRLA and EOMI. ENT: Nares clear, no rhinorrhea or epistaxis. Mucous membranes moist. NECK: Supple. CHEST: Clear to auscultation. No respiratory distress. HEART: Regular rate and rhythm. No murmur heard. Normal peripheral pulses. ABDOMEN: Soft, nontender, nondistended, normal active bowel sounds. EXTREMITIES: Normal range of motion. No edema. SKIN: Warm, dry, no rash. NE
[2022-11-22 20:54] LABS: Troponin I < 0.012 ng/mL (0.000-0.034)
== END 2022-11-22 23:24 | disposition home or self-care (01) ==
PROVIDERS: Emergency Medicine; Emergency Provider Emergency Medicine; PCP Internal Medicine
DX: G43.909 Migraine, unspecified, not intractable, without status migrainosus (principal); N39.0 Urinary tract infection, site not specified; E11.9 Type 2 diabetes mellitus without complications; I10 Essential (primary) hypertension; Z79.85 Long-term (current) use of injectable non-insulin antidiabetic drugs; Z79.84 Long term (current) use of oral hypoglycemic drugs; Z79.899 Other long term (current) drug therapy
CPT/HCPCS: 36415; 70496; 70498; 80053; 80307; 81001; 81025; 83605; 83735; 84484; 85025; 85610; 85730; 87077; 87086; 87186; 93005; 96365; 96366; 96375; 99284; J1100; J1200; J2765; J3475; J7030; Q9967

== ENCOUNTER 2022-12-05 11:25 | Outpatient (CLI) | payer MEDICARE, MEDICAID, SELFPAY ==
[2022-12-05 12:03] LABS: Hemoglobin A1C 6.1 % (<5.7)
[2022-12-05 13:33] LABS: Cholesterol 190 mg/dL (0-200); HDL Direct 47 mg/dL (40-60); LDL Cholesterol Calculated 123 mg/dL (<130); Triglycerides 102 mg/dL (0-150)
== END 2022-12-05 11:26 | disposition home or self-care (01) ==
LOC: CHSLAB 11:28
PROVIDERS: PCP Internal Medicine; Visit Provider Internal Medicine
DX: R73.03 Prediabetes (principal); E78.2 Mixed hyperlipidemia
CPT/HCPCS: 36415; 80061; 83036

== ENCOUNTER 2024-02-12 08:11 | Emergency (ER) | payer MEDICARE, MEDICAID, SELFPAY ==
--- NOTE | ~2024-02-12 | XR_ITS ---
EXAMINATION: XR chest 2V DATE: 02/12/2024 09:20 INDICATION: Cough and congestion TECHNIQUE: frontal and lateral views of the chest were obtained. COMPARISON: Chest radiograph dated 07/12/2021 FINDINGS: Consolidation in the right middle lobe concerning for pneumonia. Large calcified right lower lobe nod ule consistent with old granulomatous disease. Remainder of the lungs are clear. With no pulmonary ed hitesh, pleural effusion or pneumothorax. Heart size is normal. Mild thoracic spondylosis. IMPRESSION: 1. Right middle lobe pneumonia. Reviewed, dictated and finalized at location A.
[2024-02-12 08:27] VITALS: BP 149/106; PULSE 85; RESP 15; TEMP 36.3; O2SAT 97
[2024-02-12 08:33] VITALS: BP 149/106; PULSE 85; RESP 15; TEMP 36.3; O2SAT 97
--- NOTE | 2024-02-12 08:40 | ED.URI ---
HPI - URI/Sore Throat General Chief Complaint: Upper Respiratory Infection Stated Complaint: Cough/Headache Time Seen by Provider: 02/12/24 08:44 Source: patient, RN notes reviewed and old records reviewed Mode of arrival: ambulatory Limitations: no limitations History of Present Illness HPI Narrative: 58-year-old female presents to the [facility] with complaints of cough, body aches, fevers and headache for 4-5 days. Onset (ago): day(s) (-5) Related Data Home Medications Medication Instructions Recorded Confirmed aripiprazole 2 mg tablet (Abilify) 20 mg PO HS 07/22/20 02/12/24 clonazepam 0.25 mg disintegrating 0.25 mg PO DAILY PRN Anxiety 07/22/20 02/12/24 tablet cyanocobalamin (vitamin B-12) 1,000 mcg IM MONTHLY 07/22/20 02/12/24 1,000 mcg/mL injection solution fenofibrate 54 mg tablet 54 mg PO DAILY 07/22/20 02/12/24 fluoxetine 40 mg capsule 80 mg PO DAILY 07/22/20 02/12/24 levetiracetam 500 mg tablet 500 mg PO BID 07/22/20 02/12/24 (Keppra) metoprolol succinate 50 mg 50 mg PO BID 07/22/20 02/12/24 tablet,extended release 24 hr montelukast 10 mg tablet 10 mg PO DAILY 07/22/20 02/12/24 pantoprazole 40 mg tablet,delayed 40 mg PO DAILY 07/22/20 02/12/24 release potassium chloride 10 mEq 20 meq PO DAILY 07/22/20 02/12/24 capsule,extended release pravastatin 20 mg tablet 20 mg PO DAILY 07/22/20 02/12/24 albuterol sulfate 90 mcg/actuation See Rx Instructions .Route .COMPLEX 02/12/24 02/12/24 aerosol inhaler rimegepant 75 mg disintegrating See Rx Instructions .Route .COMPLEX 02/12/24 02/12/24 tablet (Nurtec ODT) Allergies Allergy/AdvReac Type Severity Reaction Status Date / Time cephalexin Allergy Intermediate Swelling Verified 02/12/24 08:56 of the Eye Penicillins Allergy Mild Unknown Verified 02/12/24 08:56 amoxicillin Allergy Unknown Unknown Verified 02/12/24 08:56 aspirin Allergy Unknown Unknown Verified 02/12/24 08:56 codeine Allergy Unknown Unknown Verified 02/12/24 08:56 amlodipine AdvReac Intermediate Nausea and Verified 02/12/24 08:56 Vomiting Review of Systems Review of Systems: All systems reviewed & are unremarkable except as noted in HPI and below Constitutional: Constitutional: Reports as per HPI, Reports body ache(s), Reports chills, Reports fatigue and Reports lethargy Eyes: Eyes: Reports no additional eye complaints ENT: Reports as per HPI Cardiovascular: Cardiovascular: Reports no additional cardiovascular complaints, Denies chest pain and Denies dyspnea Respiratory: Respiratory: Reports as per HPI, Reports chest congestion, Reports cough and Denies dyspnea Gastrointestinal: Gastrointestinal: Reports no additional gastrointestinal complaints, Denies abdominal pain, Denies nausea and Denies vomiting Musculoskeletal: Musculoskeletal: Reports no additional musculoskeletal complaints Integumentary/Breasts: Skin/Breast: Reports system reviewed and no additional complaints, except as docu Neurologic: Reports system reviewed and no additional complaints, except as documented Psychiatric: Psychiatric: Reports no additional psychiatric complaints Allergic/Immunologic: Allergic/Immunologic: Reports no additional allergic/immunologic complaints [facility] Past Medical History Medical History Aneurysm Angina pectoris Diabetes mellitus History of migraine HTN (hypertension) Family History Family History Sibling Hypertension Family history of diabetes mellitus in first degree relative Social History Social History Smoking status: Never smoker Gender identity (if verbalized by the patient): Female Comments At the time of my signature, I reviewed and agree with the nursing past medical, surgical, social, and family history. There is no relevant family history pertinent to the patient complaint. Exam
[2024-02-12 09:22] LABS: EDINFLUASCREEN Negative (Negative); EDINFLUBSCREEN Negative (Negative); EDSTREPNEGPOS1 Negative (Negative)
[2024-02-12 09:22] LABS: EDCOVIDSCREEN Negative (Negative)
== END 2024-02-12 09:36 | disposition home or self-care (01) ==
PROVIDERS: Emergency Provider Nurse Practitioner; PCP Student in an Organized Health Care Education/Training Program
DX: J18.1 Lobar pneumonia, unspecified organism (principal); Z20.822 Contact with and (suspected) exposure to COVID-19; E11.9 Type 2 diabetes mellitus without complications; I10 Essential (primary) hypertension
CPT/HCPCS: 71046; 87081; 87426; 87804; 87880; 99213; G0463

== ENCOUNTER 2024-07-17 09:40 | Emergency (ER) | payer MEDICARE, SELFPAY ==
[2024-07-17 09:48] VITALS: BP 153/101; PULSE 61; RESP 16; TEMP 36.9; O2SAT 97
--- NOTE | 2024-07-17 09:58 | ED.URI ---
HPI - URI/Sore Throat General Chief Complaint: Skin/Abscess/Foreign Body Stated Complaint: Rash/Sinus Time Seen by Provider: 07/17/24 09:58 Source: patient, RN notes reviewed and old records reviewed Mode of arrival: ambulatory Limitations: no limitations History of Present Illness HPI Narrative: Patient presents with complaints of sinus pain and pressure that has been present for a couple of weeks. She has not been taking anything for this. She does report the pain is worse when she leans forward. She also has some ear pressure. Her other concern today is a rash around the neck. She denies any change in lotion, soaps, detergents. She denies wearing a necklace. She reports that the rash is burning and itchy. She has not done anything to relieve the symptoms Related Data Home Medications ?Medication ?Instructions ?Recorded ?Confirmed ?Last Taken ?Type aripiprazole 2 mg tablet (Abilify) 20 mg PO HS 07/22/20 02/12/24 07/21/20 History clonazepam 0.25 mg disintegrating 0.25 mg PO DAILY PRN Anxiety 07/22/20 02/12/24 Unknown History tablet cyanocobalamin (vitamin B-12) 1,000 mcg IM MONTHLY 07/22/20 02/12/24 Unknown History 1,000 mcg/mL injection solution fenofibrate 54 mg tablet 54 mg PO DAILY 07/22/20 02/12/24 07/22/20 History fluoxetine 40 mg capsule 80 mg PO DAILY 07/22/20 02/12/24 07/21/20 History levetiracetam 500 mg tablet 500 mg PO BID 07/22/20 02/12/24 07/22/20 History (Pete) metoprolol succinate 50 mg 50 mg PO BID 07/22/20 02/12/24 07/21/20 History tablet,extended release 24 hr montelukast 10 mg tablet 10 mg PO DAILY 07/22/20 02/12/24 Unknown History pantoprazole 40 mg tablet,delayed 40 mg PO DAILY 07/22/20 02/12/24 07/21/20 History release potassium chloride 10 mEq 20 meq PO DAILY 07/22/20 02/12/24 07/21/20 History capsule,extended release pravastatin 20 mg tablet 20 mg PO DAILY 07/22/20 02/12/24 07/21/20 History albuterol sulfate 90 mcg/actuation See Rx Instructions .Route .COMPLEX 02/12/24 02/12/24 Unknown History aerosol inhaler rimegepant 75 mg disintegrating See Rx Instructions .Route .COMPLEX 02/12/24 02/12/24 Unknown History tablet (Nurtec ODT) Allergies Allergy/AdvReac Type Severity Reaction Status Date / Time cephalexin Allergy Intermediate Swelling Verified 07/17/24 09:58 of the Eye Penicillins Allergy Mild Unknown Verified 07/17/24 09:58 amoxicillin Allergy Unknown Unknown Verified 07/17/24 09:58 aspirin Allergy Unknown Unknown Verified 07/17/24 09:58 codeine Allergy Unknown Unknown Verified 07/17/24 09:58 amlodipine AdvReac Intermediate Nausea and Verified 07/17/24 09:58 Vomiting Review of Systems Review of Systems: All systems reviewed & are unremarkable except as noted in HPI and below Constitutional: Constitutional: Reports no additional constitutional complaints and Reports lethargy ENT: Reports system reviewed and no additional complaints, except as documented, Reports nasal congestion, Reports nasal discharge, Reports sinus pain and Reports sinus pressure Cardiovascular: Cardiovascular: Reports no additional cardiovascular complaints Respiratory: Respiratory: Reports no additional respiratory complaints Gastrointestinal: Gastrointestinal: Reports no additional gastrointestinal complaints Integumentary/Breasts: Skin/Breast: Reports as per HPI [facility] Past Medical History Medical History Aneurysm Angina pectoris Diabetes mellitus History of migraine HTN (hypertension) Family History Family History Sibling Hypertension Family history of diabetes mellitus in first degree relative Social History Social History Smoking status: Never smoker Gender identity (if verbalized by the patient): Female Comments At the time of my signature, I reviewed and agree with the nursing past medical, surgical, social, and family history. There is no relevant family history pertinent to the patient complaint. Exam Const: General: cooperative, no acute distress, alert and awake Orientation/consciousness: oriented to person, oriented to place and oriented to time HENMT: Head: normal to inspection Ears: TM abnormal dull bilateral Face and sinus: sinus tenderness Mouth: Yes moist mucous membranes Resp: Effort & Inspection: normal respiratory effort and able to speak in complete sentences Auscultation: clear to auscultation bilaterally, no crackles, no rales, no rhonchi and no wheezes Cardio: Palpation: normal PMI Rate: regular rate Rhythm: regular rhythm Heart sounds: S1 normal heart sound present and S2 normal heart sound present Skin: Full body images:  1. Raised red rash, splotchy 2. Raised red rash, splotchy Neuro: General: oriented to person, oriented to place and oriented to time Cranial nerves: Yes CN's II-XII intact bilaterally Psych: Appearance: grossly normal Thought process: Normal thought process present Insight: Good insight present (Psych) Judgement: Good judgement present (Psych) Course Course Level of Care: Express Care Visit Vital Signs Vital signs: Vital Signs Temperature 98.4 F 07/17/24 09:48 Pulse Rate 61 07/17/24 09:48 Respiratory Rate 16 07/17/24 09:48 Blood Pressure 153/101 H 07/17/24 09:48 Pulse Oximetry 97 07/17/24 09:48 Oxygen Delivery Room Air 07/17/24 09:48 Temperature 98.4 F 07/17/24 09:48 Pulse Rate 61 07/17/24 09:48 Respiratory Rate 16 07/17/24 09:48 Blood Pressure 153/101 H 07/17/24 09:48 Pulse Oximetry 97 07/17/24 09:48 Oxygen Delivery Room Air 07/17/24 09:48 Reviewed MDM - URI/Sore Throat MDM Narrative Medical decision making narrative: Exam consistent with sinusitis, stable for discharge home on p.o. antibiotic therapy. Patient does have a rash insert clear the neck, red, raised, splotchy. Almost looks as though it is reaction to a shirt collar or necklace. She is advised to apply not irritating lotion to the affected area. Discharge instructions reviewed with patient, as well as provided in writing per nursing staff. The instructions also include specific and strict return/GO TO THE ER as well as f/u information. All questions have been answered, and the patient deny any further questions with discharge and discharge plan. Some parts of this dictation were generated by voice recognition software and may contain typographical and/or grammatical inaccuracies. Differential Diagnosis Differential diagnosis: Likely upper respiratory infection, otitis media, sinusitis, viral infection and other (Allergic reaction) Medical Records Attestation: I reviewed the patient's medical records. Discharge Plan Discharge Clinical Impression: Dermatitis Sinusitis Qualifiers: Sinusitis location: frontal Chronicity: acute Recurrence: not specified as recurrent Qualified Code(s): J01.10 - Acute frontal sinusitis, unspecified Patient Disposition: Home, Self-Care Condition: Stable Instructions: Antibiotic Form, Sinusitis (ED), Dermatitis (ED) Additional Instructions: Take medications as prescribed. He use non irritating so to clean your rash, non irritating lotions such as Aquaphor or Eucerin. Follow-up with primary care provider. Emergency department for new or worse symptoms Patient Language: Divehi Prescriptions: New doxycycline monohydrate 100 mg capsule 100 mg PO BID Qty: 14 0RF No Action fluoxetine 40 mg capsule 80 mg PO DAILY potassium chloride 10 mEq capsule, extended release 20 meq PO DAILY metoprolol succinate 50 mg tablet extended release 24 hr 50 mg PO BID levetiracetam [Keppra] 500 mg tablet 500 mg PO BID pantoprazole 40 mg tablet,delayed release (DR/EC) 40 mg PO DAILY cyanocobalamin (vitamin B-12) 1,000 mcg/mL solution 1,000 mcg IM MONTHLY montelukast 10 mg tablet 10 mg PO DAILY pravastatin 20 mg tablet 20 mg PO DAILY clonazepam 0.25 mg tablet,disintegrating 0.25 mg PO DAILY PRN (Reason: Anxiety) aripiprazole [Abilify] 2 mg tablet 20 mg PO HS fenofibrate 54 mg tablet 54 mg PO DAILY albuterol sulfate 90 mcg/actuation HFA aerosol inhaler See Rx Instructions .ROUTE .COMPLEX Rx Instructions: Rx Nurtec ODT 75 mg tablet,disintegrating See Rx Instructions .ROUTE .COMPLEX Rx Instructions: Rx Follow-up/Referrals: Nury,DO Mac [Primary Care Provider] - 2 Weeks Time of Disposition: 10:19
== END 2024-07-17 10:30 | disposition home or self-care (01) ==
PROVIDERS: Emergency Provider Nurse Practitioner Family; PCP Student in an Organized Health Care Education/Training Program
DX: L30.9 Dermatitis, unspecified (principal); J01.10 Acute frontal sinusitis, unspecified; E11.9 Type 2 diabetes mellitus without complications; I10 Essential (primary) hypertension; I20.9 Angina pectoris, unspecified
CPT/HCPCS: 99213; G0463

== ENCOUNTER 2024-07-22 13:17 | Emergency (ER) | payer MEDICARE, MEDICAID, SELFPAY ==
--- NOTE | ~2024-07-22 | XR_ITS ---
HISTORY: fell onto knees COMPARISON: 09/23/2016 TECHNIQUE: 4 views of the left knee were performed. FINDINGS: No acute or subacute fracture, erosion, lytic or sclerotic lesion. Significant medial tibiofemoral joint space narrowing is identified with osteophyte formation. No suprapatellar joint effusion is identified. The infrapatellar joint space is clear. IMPRESSION: Significant degenerative disease, without acute fracture. Reviewed, dictated and finalized at location A. TRUCTION PLANT OPERATOR
--- NOTE | ~2024-07-22 | XR_ITS ---
HISTORY: fell onto knees COMPARISON: None TECHNIQUE: 4 views of the right knee were performed. FINDINGS: No acute or subacute fracture, erosion, lytic or sclerotic lesion. Significant medial and lateral tibiofemoral joint space narrowing is identified, with medial and late ral osteophyte formation. A small suprapatellar joint effusion is identified. The infrapatellar joint space is clear. IMPRESSION: Severe degenerative disease with a suprapatellar joint effusion, and without acute fract ure or dislocation. Reviewed, dictated and finalized at location A. CLERK IMPRESSION: Severe degenerative disease with a suprapatellar joint effusion, a nd without acute fracture or dislocation.
[2024-07-22 13:37] VITALS: BP 130/66; PULSE 63; RESP 16; TEMP 36.3; O2SAT 97
--- NOTE | 2024-07-22 14:08 | ED_ITS ---
HPI - Extremity Injury (Lower) General Chief Complaint: Extremity Injury, Lower Stated Complaint: swollen,painful knees after fall Time Seen by Provider: 07/22/24 14:04 Source: patient, RN notes reviewed and old records reviewed Mode of arrival: ambulatory Limitations: no limitations History of Present Illness HPI Narrative: 58 year old female presents to express care with complaints of falling in her home today on the [place] floor with pain to anterior bilateral knees since fall stating that right knee is worse than left. Patient has tenderness to bilateral anterior knees with no bruising noted, swelling to bilateral anterior knees right greater than left.. Pain increases with bending and also weight bearing. Patient reports that she has applied ice to her knees and has taken Tylenol for her pain. Patient has had gastric weight loss surgery and can not take any Ibuprofen or NSAIDS. Patient is ambulating with limp. complaint: knee injury (bilateral) Onset (ago): day(s) (today at her home) Injury: Bilateral: knee (bilateral anterior knees) Type of Injury: blunt Place: home Severity: moderate Exacerbating factors: weight bearing and other (bending) Treatments prior to arrival: cold therapy and other (Tylenol) Related Data Home Medications ?Medication ?Instructions ?Recorded ?Confirmed ?Last Taken ?Type aripiprazole 2 mg tablet (Abilify) 20 mg PO HS 07/22/20 02/12/24 07/21/20 History clonazepam 0.25 mg disintegrating 0.25 mg PO DAILY PRN Anxiety 07/22/20 02/12/24 Unknown History tablet cyanocobalamin (vitamin B-12) 1,000 mcg IM MONTHLY 07/22/20 02/12/24 Unknown History 1,000 mcg/mL injection solution fenofibrate 54 mg tablet 54 mg PO DAILY 07/22/20 02/12/24 07/22/20 History fluoxetine 40 mg capsule 80 mg PO DAILY 07/22/20 02/12/24 07/21/20 History levetiracetam 500 mg tablet 500 mg PO BID 07/22/20 02/12/24 07/22/20 History (Keppra) metoprolol succinate 50 mg 50 mg PO BID 07/22/20 02/12/24 07/21/20 History tablet,extended release 24 hr montelukast 10 mg tablet 10 mg PO DAILY 07/22/20 02/12/24 Unknown History pantoprazole 40 mg tablet,delayed 40 mg PO DAILY 07/22/20 02/12/24 07/21/20 History release potassium chloride 10 mEq 20 meq PO DAILY 07/22/20 02/12/24 07/21/20 History capsule,extended release pravastatin 20 mg tablet 20 mg PO DAILY 07/22/20 02/12/24 07/21/20 History albuterol sulfate 90 mcg/actuation See Rx Instructions .Route .COMPLEX 02/12/24 02/12/24 Unknown History aerosol inhaler rimegepant 75 mg disintegrating See Rx Instructions .Route .COMPLEX 02/12/24 02/12/24 Unknown History tablet (Nurtec ODT) Allergies Allergy/AdvReac Type Severity Reaction Status Date / Time cephalexin Allergy Intermediate Swelling Verified 07/22/24 13:25 of the Eye Penicillins Allergy Mild Unknown Verified 07/22/24 13:25 amoxicillin Allergy Unknown Unknown Verified 07/22/24 13:25 aspirin Allergy Unknown Unknown Verified 07/22/24 13:25 codeine Allergy Unknown Unknown Verified 07/22/24 13:25 amlodipine AdvReac Intermediate Nausea and Verified 07/22/24 13:25 Vomiting Review of Systems Review of Systems: CONSTITUTIONAL: Denies fever, chills, or sweats. EYES: Denies visual changes, redness, or discharge. ENT: Denies rhinorrhea, congestion, sore throat, or otalgia. CARDIOVASCULAR: Denies chest pain, palpitations, or edema. RESPIRATORY: Denies cough or dyspnea. GASTROINTESTINAL: Denies abdominal pain, nausea, vomiting, or diarrhea. GENITOURINARY: Denies dysuria or hematuria. SKIN: Denies rash or itching. MUSCULOSKELETAL: Denies back pain,positive for bilateral knee pain and swelling right > than left , or myalgia. NEUROLOGIC: Denies headache, numbness, or weakness. PSYCHIATRIC:Reports history of anxiety or depression. All systems reviewed & are unremarkable except as noted in HPI and below PMFSH Past Medical History Medical History Kidney stone Seizures Anxiety and depression Angina pectoris Aneurysm brain surgery at [facility] History of migraine HTN (hypertension) Diabetes mellitus Surgical History Surgical History History of endometrial ablation History of appendectomy History of cholecystectomy Family History Family History Sibling Hypertension Family history of diabetes mellitus in first degree relative Social History Social History Smoking status: Never smoker Alcohol intake: current Alcohol use details: rare Substance use: never Gender identity (if verbalized by the patient): Female Comments At time of signature, agree with nursing past medical, surgical, social and family history. There is no relevant family history pertinent to the presenting complaint Exam Narrative: GENERAL: Well-appearing, well-nourished, and in some acute distress. HEAD: Normocephalic, atraumatic. EYES: PERRLA and EOMI. ENT: Nares clear, no rhinorrhea or epistaxis. Mucous membranes moist. NECK: Supple.no lymphadenopathy CHEST: Clear to auscultation. No respiratory distress.SAO2 97% on room air HEART: Regular rate and rhythm. No murmur heard. Normal peripheral pulses. ABDOMEN: Soft, nontender, nondistended, normal active bowel sounds. EXTREMITIES: Normal range of motion. No edema. Exception noted to bilateral knees with swelling present anteriorly with increased pain with bending and ambulation. Patient experienced ground level fall to knees onto hard wood floor today and has had pain and swelling to knee since. is able to ambulate with l imping gait.no pain to lateral or medial aspects of knees, anterior pain with palpation, no posterior knee pain. SKIN: Warm, dry, no rash. NEURO: No focal deficits. Alert and oriented x3. Course Course Emergency Course: Patient is aware of diagnosis, understands and agrees to treatment plan.? Anticipatory guidance given.? Patient agrees to follow-up as directed and is aware of reasons to seek care at the emergency department. Portions of this record may have been created with voice recognition software Level of Care: Express Care Visit Vital Signs Vital signs: Vital Signs Temperature 36.3 C L 07/22/24 13:37 Pulse Rate 63 07/22/24 13:37 Respiratory Rate 16 07/22/24 13:37 Blood Pressure 130/66 07/22/24 13:37 Pulse Oximetry 97 07/22/24 13:37 Oxygen Delivery Room Air 07/22/24 13:37 Temperature 36.3 C L 07/22/24 13:37 Pulse Rate 63 07/22/24 13:37 Respiratory Rate 16 07/22/24 13:37 Blood Pressure 130/66 07/22/24 13:37 Pulse Oximetry 97 07/22/24 13:37 Oxygen Delivery Room Air 07/22/24 13:37 Reviewed MDM - Extremity Injury (Lower) Differential Diagnosis Differential diagnosis: Likely acute internal derangement of knee and other (contusions to bilateral knees, degenerative disease to bilateral knees, right knee effusion) Medical Records Attestation: I reviewed the patient's medical records. Imaging Data Attestation: I personally reviewed and interpreted this imaging study as follows: My impression: right knee severe degenerative joint disease with small suprapatellar joint effusion noted, no fracture or dislocation noted Left knee X-ray: significant joint degenerative disease without fracture Radiologist's impression: [facility], [place] [address] [place] [address] XRay Report Signed Patient: Landy Toribio : 1965 MR#: [id number] Age: 58 Acct:[id number] Loc: [facility] ADM Date: 07/22/24Attending Dr: Ordering Physician: Emily Peoples APRN Date of Service: 07/22/24 Procedure(s): XR knee RT min 4V Accession Number(s): [id number] cc: Nury, Mac DO; Emily Peoples INSTRUMENT AND CONTROL TECHNICIAN~ HISTORY: fell onto knees COMPARISON: None TECHNIQUE: 4 views of the right knee were performed. FINDINGS: No acute or subacute fracture, erosion, lytic or sclerotic lesion. Significant medial and lateral tibiofemoral joint space narrowing is identified, with medial and lateral osteophyte formation. A small suprapatellar joint effusion is identified. The infrapatellar joint space is clear. IMPRESSION: Severe degenerative disease with a suprapatellar joint effusion, and without acute fracture or dislocation. Reviewed, dictated and finalized at location A. SCIENTIST Please be advised this is a medical document. It is intended for [id number] communication. It is written in medical language and may contain unfamiliar abbreviations or verbiage. Medical documents are intended to carry relevant information, facts as evident, and the clinical opinion of the practitioner at the time of the encounter. This report may have been done utilizing a voice recognition system. Attempts have been made to correct errors. However, there may be uncorrected grammatical, spelling, and recognition errors present. The file time of this note does not necessarily represent the time of service. Dictated By: Nova Perry MD 07/22/24 1451 Signed By: <Electronically signed by Nova Perry MD in OV> [address] [id number] XRay Report Signed Patient: Landy Toribio : 1965 MR#: [id number] Age: 58 Acct:[id number] Loc: [facility] ADM Date: 07/22/24Attending Dr: Ordering Physician: Emily Peoples APRN Date of Service: 07/22/24 Procedure(s): XR knee LT min 4V Accession Number(s): [id number] cc: Nury, Mac DO; Emily Peoples APRN~ HISTORY: fell onto knees COMPARISON: 09/23/2016 TECHNIQUE: 4 views of the left knee were performed. FINDINGS: No acute or subacute fracture, erosion, lytic or sclerotic lesion. Significant medial tibiofemoral joint space narrowing is identified with osteophyte formation. No suprapatellar joint effusion is identified. The infrapatellar joint space is clear. IMPRESSION: Significant degenerative disease, without acute fracture. Reviewed, dictated and finalized at location A. SCIENTIST Please be advised this is a medical document. It is intended for slwp-ga-egui communication. It is written in medical language and may contain unfamiliar abbreviations or verbiage. Medical documents are intended to carry relevant information, facts as evident, and the clinical opinion of the practitioner at the time of the encounter. This report may have been done utilizing a voice recognition system. Attempts have been made to correct errors. However, there may be uncorrected grammatical, spelling, and recognition errors present. The file time of this note does not necessarily represent the time of service. Dictated By: Nova Perry MD 07/22/24 1452 Signed By: <Electronically signed by Nova Perry MD in OV> Critical Care Time Critical Care Time Critical Care Time: No Discharge Plan Discharge Clinical Impression: Effusion of knee joint right Degenerative joint disease of knee, left Qualifiers: Osteoarthritis type: unspecified Qualified Code(s): M17.12 - Unilateral primary osteoarthritis, left knee Degenerative joint disease of knee, right Qualifiers: Osteoarthritis type: unspecified Qualified Code(s): M17.11 - Unilateral primary osteoarthritis, right knee Patient Disposition: Home, Self-Care Condition: Stable Instructions: Antibiotic Form, Osteoarthritis (ED), Swollen Knee Joint (ED) Additional Instructions: Elastic wrap or orthopedic splint as directed for comfort for the next 5-7 days Neoprene sleeve to knees for support Arthritis strength Tylenol q.8 hours with food for pain control Topical ointment such as Socrates-Schaffer with lidocaine or Biofreeze Follow-up with orthopedic surgeon as arranged as per PCP referral Follow-up with PCP if further problems or concerns Ice to the area 20-30 minutes 4-6 times a day Elevate above heart If your symptoms persist, change or worsen significantly before you can contact your personal physician then please, without delay, go to the emergency department for further evaluation. Follow-up with PCP in 7-10 days or sooner if needed Follow up with PCP soon in regards to your blood pressure which is elevated above threshold for referral. Blood pressure above 120/80 may indicate pre- hypertension. Patient Language: Gibraltarian Prescriptions: No Action fluoxetine 40 mg capsule 80 mg PO DAILY potassium chloride 10 mEq capsule, extended release 20 meq PO DAILY metoprolol succinate 50 mg tablet extended release 24 hr 50 mg PO BID levetiracetam [Keppra] 500 mg tablet 500 mg PO BID pantoprazole 40 mg tablet,delayed release (DR/EC) 40 mg PO DAILY cyanocobalamin (vitamin B-12) 1,000 mcg/mL solution 1,000 mcg IM MONTHLY montelukast 10 mg tablet 10 mg PO DAILY pravastatin 20 mg tablet 20 mg PO DAILY clonazepam 0.25 mg tablet,disintegrating 0.25 mg PO DAILY PRN (Reason: Anxiety) aripiprazole [Abilify] 2 mg tablet 20 mg PO HS fenofibrate 54 mg tablet 54 mg PO DAILY albuterol sulfate 90 mcg/actuation HFA aerosol inhaler See Rx Instructions .ROUTE .COMPLEX Rx Instructions: Rx Nurtec ODT 75 mg tablet,disintegrating See Rx Instructions .ROUTE .COMPLEX Rx Instructions: Rx doxycycline monohydrate 100 mg capsule 100 mg PO BID Qty: 14 0RF Follow-up/Referrals: Nury,DO Mac [Primary Care Provider] - Time of Disposition: 15:14 Quality Mur[place] Coma Scale Eyes: Open Verbal: Oriented and Alert Motor: Follows Commands [place] Coma Total Score: 15
== END 2024-07-22 15:24 | disposition home or self-care (01) ==
PROVIDERS: Emergency Provider Registered Nurse; PCP Student in an Organized Health Care Education/Training Program
DX: M25.461 Effusion, right knee (principal); M17.12 Unilateral primary osteoarthritis, left knee; M17.11 Unilateral primary osteoarthritis, right knee; I10 Essential (primary) hypertension; E11.9 Type 2 diabetes mellitus without complications; W19.XXXA Unspecified fall, initial encounter; Y92.009 Unspecified place in unspecified non-institutional (private) residence as the place of occurrence of the external cause
CPT/HCPCS: 73564; 99214; G0463

== ENCOUNTER 2025-03-03 10:21 | Emergency (ER) | payer MEDICARE, MEDICAID, SELFPAY ==
[2025-03-03 11:30] VITALS: BP 133/65; PULSE 61; RESP 16; TEMP 36.5; O2SAT 96
[2025-03-03 11:49] LABS: EDCOVIDSCREEN Negative (Negative); EDINFLUASCREEN Negative (Negative); EDINFLUBSCREEN Negative (Negative); EDSTREPNEGPOS1 Negative (Negative)
--- NOTE | 2025-03-03 12:15 | ED.URI ---
HPI - URI/Sore Throat General Chief Complaint: Upper Respiratory Infection Stated Complaint: sorethroat,headache Source: patient and RN notes reviewed Mode of arrival: ambulatory Limitations: no limitations History of Present Illness HPI Narrative: 59-year-old female presents Express Care complaining of sore throat, headache, cough, congestion, otalgia, body aches, chills for approximately 2 days. Patient denies any other upper respiratory symptoms, chest pain, shortness of breath, nausea vomiting, diarrhea, abdominal pain, or any other symptoms. Patient reports a history of a brain aneurysm, hypertension, type 2 diabetes. Patient has a taking bbre-pqp-watstpl to help with symptoms. Related Data Home Medications ?Medication ?Instructions ?Recorded ?Confirmed ?Last Taken ?Type aripiprazole 2 mg tablet (Abilify) 20 mg PO HS 07/22/20 02/12/24 07/21/20 History clonazepam 0.25 mg disintegrating 0.25 mg PO DAILY PRN Anxiety 07/22/20 02/12/24 Unknown History tablet cyanocobalamin (vitamin B-12) 1,000 mcg IM MONTHLY 07/22/20 02/12/24 Unknown History 1,000 mcg/mL injection solution fenofibrate 54 mg tablet 54 mg PO DAILY 07/22/20 02/12/24 07/22/20 History fluoxetine 40 mg capsule 80 mg PO DAILY 07/22/20 02/12/24 07/21/20 History levetiracetam 500 mg tablet 500 mg PO BID 07/22/20 02/12/24 07/22/20 History (Pete) metoprolol succinate 50 mg 50 mg PO BID 07/22/20 02/12/24 07/21/20 History tablet,extended release 24 hr montelukast 10 mg tablet 10 mg PO DAILY 07/22/20 02/12/24 Unknown History pantoprazole 40 mg tablet,delayed 40 mg PO DAILY 07/22/20 02/12/24 07/21/20 History release potassium chloride 10 mEq 20 meq PO DAILY 07/22/20 02/12/24 07/21/20 History capsule,extended release pravastatin 20 mg tablet 20 mg PO DAILY 07/22/20 02/12/24 07/21/20 History rimegepant 75 mg disintegrating See Rx Instructions .Route .COMPLEX 02/12/24 02/12/24 Unknown History tablet (Nurtec ODT) Allergies Allergy/AdvReac Type Severity Reaction Status Date / Time cephalexin Allergy Intermediate Swelling Verified 03/03/25 11:01 of the Eye Penicillins Allergy Mild Unknown Verified 03/03/25 11:01 amoxicillin Allergy Unknown Unknown Verified 03/03/25 11:01 aspirin Allergy Unknown Unknown Verified 03/03/25 11:01 codeine Allergy Unknown Unknown Verified 03/03/25 11:01 amlodipine AdvReac Intermediate Nausea and Verified 03/03/25 11:01 Vomiting Review of Systems Review of Systems: CONSTITUTIONAL: Denies fever, or sweats. Positive for body aches and chills. EYES: Denies visual changes, redness, or discharge. ENT: Positive for congestion, sore throat, and otalgia. Negative for rhinorrhea. CARDIOVASCULAR: Denies chest pain, palpitations, or edema. RESPIRATORY: Positive for cough. Negative for dyspnea or wheezing. GASTROINTESTINAL: Denies abdominal pain, nausea, vomiting, or diarrhea. GENITOURINARY: Denies dysuria or hematuria. SKIN: Denies rash or itching. MUSCULOSKELETAL: Denies back pain, joint pain, or myalgia. NEUROLOGIC: Denies headache, numbness, or weakness. PSYCHIATRIC: Denies anxiety or depression. All other systems reviewed are negative, except as documented in HPI. [facility] Past Medical History Medical History Kidney stone Seizures Anxiety and depression Angina pectoris Aneurysm brain surgery at [facility] History of migraine HTN (hypertension) Diabetes mellitus Surgical History Surgical History History of endometrial ablation History of appendectomy History of cholecystectomy Family History Family History Sibling Hypertension Family history of diabetes mellitus in first degree relative Social History Social History Smoking status: Never smoker Alcohol intake: current Alcohol use details: rare Substance use: never Gender identity (if verbalized by the patient): Female Comments At the time of my signature, I reviewed and agree with the nursing past medical, surgical, social, and family history. There is no relevant family history pertinent to the patient complaint. Exam Narrative: GENERAL: This is a well-nourished, well-developed adult, in no apparent distress. They are non ill-appearing, nontoxic appearing. HEAD: normocephalic, atraumatic. EYES: Sclera clear/white. Vision is grossly intact. Conjunctiva normal bilaterally. Extraocular movements intact. EARS: External ears normal, auditory canals clear and without drainage, TMs without erythema or perforation. Hearing grossly intact. NOSE: External nose normal with no obvious nasal discharge, nasal turbinates erythematous, no rhinorrhea. THROAT: Mucous membranes moist, posterior pharynx erythematous without exudate. Uvula is midline. Postnasal drip present. NECK: Neck supple, non-tender without lymphadenopathy, masses or thyromegaly. CARDIOVASCULAR: Regular rate and rhythm without murmurs, gallops, or rubs. RESPIRATORY: Clear to auscultation. Breath sounds equal bilaterally. No wheezes, rales, or rhonchi. SKIN: warm, Dry, intact with no suspicious lesions or rash, good texture and turgor. NEURO: awake, alert, and oriented to person, place and time. There were no obvious focal neurologic abnormalities. EXTREMITIES: No joint tenderness, effusion, or edema noted. BACK: Nontender without deformity. Course Course Emergency Course: Portions of this record may have been created with voice recognition software Level of Care: Express Care Visit Vital Signs Vital signs: Vital Signs Temperature 97.7 F 03/03/25 11:30 Pulse Rate 61 03/03/25 11:30 Respiratory Rate 16 03/03/25 11:30 Blood Pressure 133/65 03/03/25 11:30 Pulse Oximetry 96 03/03/25 11:30 Oxygen Delivery Room Air 03/03/25 11:30 Temperature 97.7 F 03/03/25 11:30 Pulse Rate 61 03/03/25 11:30 Respiratory Rate 16 03/03/25 11:30 Blood Pressure 133/65 03/03/25 11:30 Pulse Oximetry 96 03/03/25 11:30 Oxygen Delivery Room Air 03/03/25 11:30 MDM - URI/Sore Throat MDM Narrative Medical decision making narrative: Rapid COVID, flu, strep were negative. A throat culture is pending. Symptoms likely viral in etiology. Discussed supportive therapy. Discussed physical exam findings. Advised supportive measures and signs/symptoms to go to the ER. Pt is appropriate for outpt treatment and f/u. Differential Diagnosis Differential diagnosis: Likely upper respiratory infection, sinusitis, viral infection and pharyngitis Lab Data Attestation: I reviewed the patient's lab results. Labs: Lab Results 03/03/25 Range/Units 11:29 POC Influenza A Ag Negative (Negative) POC Influenza B Ag Negative (Negative) POC SARS CoV-2 Ag Negative (Negative) POC Grp A Strep Screen Negative (Negative) Discharge Plan Discharge Clinical Impression: Upper respiratory infection Qualifiers: URI type: unspecified viral URI Qualified Code(s): J06.9 - Acute upper respiratory infection, unspecified Patient Disposition: Home Condition: Stable Instructions: Viral Syndrome (ED) Additional Instructions: Your rapid COVID, flu, rapid strep swab was negative today at [facility]. You will be notified in a few days if the culture comes back positive for strep, and appropriate antibiotics will be called in for you at that time. Your symptoms are likely due to a viral illness, which is not treated with antibiotics. Viral symptoms can be present for up to 5-10 days. Take Tylenol or ibuprofen as needed for fever or pain. Follow instructions on the bottle. If you take DayQuil or NyQuil do not take any Tylenol as it artery contains Tylenol. Rest and stay hydrated. Follow up with your PCP in 5-7 days if symptoms are not improving. Go to the ER immediately if you developed chest pains, nausea, vomiting, fevers, difficulty breathing or swallowing, or any serious concerns. Patient Language: Syriac Prescriptions: No Action fluoxetine 40 mg capsule 80 mg PO DAILY potassium chloride 10 mEq capsule, extended release 20 meq PO DAILY metoprolol succinate 50 mg tablet extended release 24 hr 50 mg PO BID levetiracetam [Keppra] 500 mg tablet 500 mg PO BID pantoprazole 40 mg tablet,delayed release (DR/EC) 40 mg PO DAILY cyanocobalamin (vitamin B-12) 1,000 mcg/mL solution 1,000 mcg IM MONTHLY montelukast 10 mg tablet 10 mg PO DAILY pravastatin 20 mg tablet 20 mg PO DAILY clonazepam 0.25 mg tablet,disintegrating 0.25 mg PO DAILY PRN (Reason: Anxiety) aripiprazole [Abilify] 2 mg tablet 20 mg PO HS fenofibrate 54 mg tablet 54 mg PO DAILY Nurtec ODT 75 mg tablet,disintegrating See Rx Instructions .ROUTE .COMPLEX Rx Instructions: Rx Follow-up/Referrals: Nury,DO Mac [Primary Care Provider] Stand Alone Forms: Work/School Release IP Time of Disposition: 12:15
== END 2025-03-03 12:17 | disposition home or self-care (01) ==
PROVIDERS: PCP Student in an Organized Health Care Education/Training Program
DX: J06.9 Acute upper respiratory infection, unspecified (principal); I10 Essential (primary) hypertension; E11.9 Type 2 diabetes mellitus without complications; Z20.822 Contact with and (suspected) exposure to COVID-19
CPT/HCPCS: 87081; 87426; 87804; 87880; 99213; G0463